=== PATIENT | male | born 1935 | race Caucasian/White ===

== ENCOUNTER → 2017-11-04 | Outpatient (CLI) | payer OTHER ==
[~2017-11-04] MED LIST: ADALAT CC30 MG PO; AUGMENTIN 500-1 EACH PO; AUGMENTIN 875875 MG PO; BENADRYL25 MG PO; BLOOD THINNER; CEFDINIR300 MG PO; DIFLUCAN200 MG PO; HYDROCHLOROTH12.5 M1 PO; HYDROCHLOROTH12.5 MG; HYDROCODONE-AP1 EAC6; LEVAQUIN 500 M500 M2 PO; LISINOPRIL20 MG PO; MUCINEX600 MG PO; PREDNISONE 10 M10 MG PO; PREDNISONE 20 M20 MG PO; TYLENOL325 MG PO; VENTOLIN HFA 1818 GM INH; ZYRTEC10 MG PO
--- NOTE | 2017-11-17 23:20 | ONC ---
[place] [address] RADIATION ONCOLOGY NOTE Name: AUGIEABBEY Maninder Room: [facility]#: [id number] Admission: 11/04/17 Attend Phys: Beni Hernandez MD Discharge: Date of : 39 Report #: [id number] THIS REPORT FOR: //name// CC: Beni Graf DATE OF PROCEDURE: 11/04/2017 [facility] REFERRING PHYSICIANS: Kurtis Gillette DO; Lyla Mendosa MD; Stephanie Baron MD; and Dr. Graf. PRIMARY SITE AND HISTOPATHOLOGY: The patient received Erbitux with radiation therapy for a stage ZULEYKA base of tongue cancer. Radiation treatments were completed on 07/13/2013. PROCEDURE PERFORMED: Nasopharyngolaryngoscopy. FINDINGS: On nasopharyngolaryngoscopy, after administration of a small amount of 2% viscous lidocaine orally and 2% viscous lidocaine to the left nostril; there were no visible lesions in the nasopharynx. There were no visible lesions in the posterior oropharynx. The base of tongue had no visible lesions. The true vocal cords were normally mobile bilaterally without any visible lesions. There was no evidence of head and neck cancer. Thank you for allowing me to participate in the care of this patient. <ELECTRONICALLY SIGNED> By: Beni Hernandez MD 11/17/17 2320 1002 1114Dtianna Hernandez MD /nt
--- NOTE | 2017-11-17 23:34 | ONC ---
[place] [address] RADIATION ONCOLOGY NOTE Name: ABBEY GHOSH Room: [facility]#: [id number] Admission: 11/04/17 Attend Phys: Beni Hernandez MD Discharge: Date of : 39 Report #: [id number] THIS REPORT FOR: //name// CC: Beni Baron MD DATE OF SERVICE: 11/04/2017 REFERRING PHYSICIANS: Dr. Kurtis Gillette, Lyla Mendosa MD and Stephanie Baron MD [facility] phone is [phone]. PRIMARY SITE AND HISTOPATHOLOGY: The patient received Erbitux with radiation therapy for a stage ZULEYKA base of tongue cancer. The radiation treatments were completed on 07/13/2013. INTERVAL NOTE: The patient is eating well. He was taking several stool softeners and his daughter had him decrease the amount of stool softeners he was taking. Lately, he has been a little bit weaker. He is edentulous. In the past, he has also had some skin cancers removed from the right ear, left chin and right upper lip. MEDICATIONS: Flonase, Procardia, lisinopril, hydrochlorothiazide. SOCIAL HISTORY: The patient is retired. He has 3 children. Cigarettes: he continues to smoke about 3-5 cigarettes a day. REVIEW OF SYSTEMS: RESPIRATORY: The patient's breathing was baseline. MUSCULOSKELETAL: Good range of motion of his upper extremities. PHYSICAL EXAMINATION: VITAL SIGNS: The patient weighed 128.6 pounds on 11/04/2017, he was 140.4 pounds on 09/01/2016. on 11/04/2017 blood pressure was 155/67, pulse was originally 128. I rechecked it after he got to stand for a while and it went down to 96. LYMPH NODES: He had no palpable cervical or supraclavicular lymphadenopathy. HEAD, EYES, EARS, NOSE AND THROAT: Mouth had no suspicious visible lesions or suspicious palpable lesions. On nasopharyngolaryngoscopy, after administration of a small amount of 2% viscous lidocaine orally and 2% viscous lidocaine to the left nostril with a cotton swab, there were no visible lesions in the nasopharynx. There were no visible lesions in the posterior oropharynx. True vocal cords were normally mobile bilaterally without any visible lesions. The base of tongue had no visible lesions. HEART: Had a regular rate and rhythm without murmur. LUNGS: [place] [address] RADIATION ONCOLOGY NOTE Name: ABBEY GHOSH Room: [facility]#: [id number] Admission: 11/04/17 Attend Phys: Beni Hernandez MD Discharge: Date of : 39 Report #: [id number] clear to auscultation. LABORATORY DATA: From 10/23/2017, white blood cell count was 12.58, hemoglobin 10.6, platelets 428,000. Sodium 131, potassium 4.5, BUN 19, creatinine 1.0. TSH was 3.01. ASSESSMENT AND PLAN: 1. History of head and neck cancer- There is no evidence of head and neck cancer. A requisition was given to the patient for a TSH, complete blood count, basic metabolic panel in about 8 months. He was asked to schedule a followup appointment to see me afterwards. 2. Cigarette/cigar smoking- The patient was encouraged to quit smoking. 3. 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 4. Possible upper respiratory infection. The patient has a cough at home. His white blood cell count is a little bit elevated, so he was prescribed azithromycin for a presumed upper respiratory infection. His daughter was told to contact his primary care physician if his strength does not come back or if his symptoms worsen. Thank you for allowing me to participate in the care of this patient. <ELECTRONICALLY SIGNED> By: Beni Hernandez MD 11/17/17 2334 1011 1033Dtianna Hernandez MD /nt
== END ==
LOC: M.RTH 11-02 14:00
DX: Z08 Encounter for follow-up examination after completed treatment for malignant neoplasm (principal); Z85.89 Personal history of malignant neoplasm of other organs and systems; F17.200 Nicotine dependence, unspecified, uncomplicated; C44.202 Unspecified malignant neoplasm of skin of right ear and external auricular canal; C44.309 Unspecified malignant neoplasm of skin of other parts of face; C00.0 Malignant neoplasm of external upper lip

== ENCOUNTER 2017-12-12 07:41 | Inpatient (IN) | payer OTHER ==
[~2017-12-12] VITALS: Ht 170.2 cm; Wt 61.7 kg
[~2017-12-12 07:41] MED LIST changes: -AUGMENTIN 500-1 EACH PO; -BLOOD THINNER; -CEFDINIR300 MG PO; -DIFLUCAN200 MG PO; -MUCINEX600 MG PO; -PREDNISONE 10 M10 MG PO; -TYLENOL325 MG PO; -VENTOLIN HFA 1818 GM INH
[2017-12-12 07:43] VITALS: BP 151/88
--- NOTE | 2017-12-12 07:51 | NUR ---
PT HARD OF HEARING AND UNABLE TO ANSWER SOME TRIAGE QUESTIONS.
[2017-12-12] MEDS ORDERED: BLOOD THINNER (08:11)
[2017-12-12 08:26] LABS: HEMATOCRIT 29.4 % (42.0-52.0); HEMOGLOBIN 10.3 gm/dL (14.0-18.0); MCH 31.5 pg (26.0-34.0); MCV 90.1 fL (80.0-100.0); MPV 6.8 fl. (7.2-11.1); NUCLEATED RBCS 0 /100WBC; PLATELET COUNT* 333 thou/uL (150-400); RBC 3.26 mil/uL (4.50-6.00); WBC 5.8 thou/uL (4.0-11.0)
[2017-12-12 08:36] LABS: APTT 31.5 Seconds (25.0-31.3); INR 1.2; PROTIME 11.2 Seconds (9.20-11.50)
[2017-12-12 08:41] LABS: BE 5.4 mmol/L (-2 to +3); HCO3 30.4 mmol/L (22.0-26.0); PCO2 46.4 mmHg (35.0-45.0); PO2 120.1 mmHg (75.0-100.0); pH 7.434 (7.340-7.450)
[2017-12-12 08:43] LABS: ANION GAP 6 mmol/L (7-16); BUN 15 mg/dL (7-18); CALCIUM 8.6 mg/dL (8.5-10.1); CHLORIDE 95 mmol/L (98-107); CO2 31 mmol/L (21-32); CREATININE 0.7 mg/dL (0.6-1.3); GLUCOSE 93 mg/dL (70-99); SODIUM 132 mmol/L (136-145)
[2017-12-12 08:54] LABS: ALBUMIN 2.9 g/dL (3.4-5.0); ALKALINE PHOSPHATASE 66 U/L (46-116); NT-PRO BRAIN NAT PEPTIDE 574 pg/mL (<300); SGOT 20 U/L (15-37); SGPT 23 U/L (30-65); TOTAL BILIRUBIN 0.3 mg/dL (<0.1-1.0); TOTAL PROTEIN 6.7 g/dL (6.4-8.2); TROPONIN-I LEVEL <0.06 ng/mL (<0.06)
[2017-12-12 09:06] LABS: ABSOLUTE EOSINOPHILS 0.1 thou/uL (0.0-0.7); ABSOLUTE LYMPHOCYTES 0.2 thou/uL (0.8-5.3); ABSOLUTE MONOCYTES 0.2 thou/uL (0.0-1.2); ABSOLUTE NEUTROPHILS 5.3 thou/uL (1.6-8.1); PLATELET ESTIMATE ADEQUATE
--- NOTE | 2017-12-12 09:09 | NUR ---
PT'S DAUGHTER, PANFILO, CALLED TO ASK ABOUT PT. PANFILO STATED SHE WILL BE COMING TO HOSPITAL IN APPROX 1 HOUR.
--- NOTE | 2017-12-12 10:51 | NUR ---
[facility] [place] WAS CONTACTED, THIS NURSE UPDATED THE PT'S CURRENT MEDICATION LIST ACCORDING TO THE MEDICATIONS GIVEN BY PHARMACY.
[2017-12-12 13:15] VITALS: BP 117/90
[2017-12-12 14:00] VITALS: BP 144/73
--- NOTE | 2017-12-12 15:31 | NUR ---
PATIENT CAME TO THE FLOOR FROM THE ER IN STABLE CONDITION. 2 LITERS OF OXYGEN THROUGH NASAL CANNULA WITH OXYGEN SATURATION OF 100%. NO COMPLAINTS OF ANY PAIN. DAUGHTER CALLED FOR HISTORY SINCE PATIENT IS VERY HARD OF HEARING. VITALS SIGNS ARE STABLE, ADMISSIOND ASSESSMENT AND EDUCATION DONE, CALL LIGHT IS IN REACH, BED ALARM IN ON. WILL CONTINUE TO MONITOR.
--- NOTE | 2017-12-12 17:26 | NUR ---
PATIENT HAS BEEN ALERT SINCE COMING TO THE FLOOR TODAY FROM THE ER. PATIENT IS VERY HARD OF HEARING, HAVING TO USE A PAPER TO COMMUNICATE WITH PATIENT. HE CAN TALK BUT HAS TO READ WORDS WRIITEN ON PAPER. KEEPS ASKING ABOUT FAMILY BRINGING UP DENTURES, CHOPPED DIET IS ORDERED. VITAL SIGNS STABLE ON ROOM AIR. CALL LIGHT IS IN REACH AND BED ALARM IS ON. WILL CONTINUT TO MONITOR.
[2017-12-12 19:45] VITALS: BP 123/72
[2017-12-13 00:42] VITALS: BP 131/79
[2017-12-13 03:28] VITALS: BP 122/81
--- NOTE | 2017-12-13 05:09 | NUR ---
PATIENT ALERT AND ORIENTED. VERY HARD OF HEARING. VITALS STABLE. ON 2L OF OXYGEN. DIFFICULT TO COMPREHEND SPEECH AT TIMES. PRODUCTIVE COUGH. IV PATENT, SALINE LOCKED. VOIDING PER URINAL. HOURLY ROUNDS. BED ALARM IN USE. NUSING WILL CONTINUE TO MONITOR.
[2017-12-13 05:33] LABS: CALCIUM 8.8 mg/dL (8.5-10.1); CREATININE 0.8 mg/dL (0.6-1.3); MAGNESIUM 1.7 mg/dL (1.8-2.4)
[2017-12-13 05:39] LABS: HEMATOCRIT 31.3 % (42.0-52.0); HEMOGLOBIN 10.9 gm/dL (14.0-18.0); MCH 31.1 pg (26.0-34.0); MCHC 34.8 g/dL (28.0-37.0); MCV 89.4 fL (80.0-100.0); MPV 7.2 fl. (7.2-11.1); RBC 3.5 mil/uL (4.50-6.00); RDW-CV 13.5 % (10.5-14.5); WBC 15.6 thou/uL (4.0-11.0)
[2017-12-13 08:15] VITALS: BP 123/72
--- NOTE | 2017-12-13 13:03 | EKG ---
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1935 Requested By: Agapito Hayward Order Number: [id number] MD: Thomas Valderrama Measurements Intervals [place] Rate: 82 P: 78 HI: 155 QRS: 104 QRSD: 134 T: 47 QT: 407 QTc: 476 Interpretive Statements Sinus rhythm Probable left atrial enlargement Right bundle branch block Anteroseptal infarct, age indeterminate Lateral leads are also involved Compared to ECG 12/18/2015 12:52:46 Myocardial infarct finding now present Sinus tachycardia no longer present Ventricular premature complex(es) no longer present Electronically Signed On 12-13-2017 13:03:03 CDT by Thomas Valderrama [email or web address] <ELECTRONICALLY SIGNED> By: Denise Valderrama MD, FACC 12/13/17 1303 3 3 Denise Valderrama MD, [facility] /EPI
[2017-12-13 15:30] VITALS: BP 122/71
--- NOTE | 2017-12-13 17:42 | NUR ---
PATIENT HAS BEEN ALERT AND PLEASANT TODAY. NO COMPLAINTS OF PAIN TODAY. VITAL SIGNS STABLE ON 2 LITERS OF OXYGEN THROUGH NASAL CANNULA. IV IN LEFT UPPER ARM WORKS WELL FOR ANTIBIOTICS AND STEROIDS. CALL LIGHT IS IN REACH, WILL CONTINUE TO MONITOR.
[2017-12-13 21:20] VITALS: BP 120/66
--- NOTE | 2017-12-14 05:27 | NUR ---
PT SLEPT MOST OF SHIFT. ASSESSMENT DOCUMENTED. MEDS GIVEN PER E-MAR. NO REPORTS OF PAIN OR NAUSEA. NEW IV STARTED IN RIGHT FOREARM. PT WORE O2 ALL NIGHT. MAGNESIUM REPLACED PER PROTOCOL. WILL CONTINUE WITH PLAN OF CARE.
[2017-12-14 08:20] VITALS: BP 123/68
[2017-12-14] MEDS ORDERED: PREDNISONE 10 M10 MG PO (10:40)
[2017-12-14] MEDS ORDERED: CEFDINIR300 MG PO (10:40)
[2017-12-14] MEDS ORDERED: MUCINEX600 MG PO (10:40)
--- NOTE | 2017-12-14 10:40 | NUR ---
CM SPOKE TO THE PATIENT TO DISCUSS HOME SITUATION, DISCHARGE PLANNING, AND TO INFORM OF THE ROLE OF CM. PATIENT [place] AND UNABLE TO ANSWERING QUESTIONS APPROPRIATELY. PATIENTS DTR AARON AT THE BEDSIDE AND ANSWERING QUESTIONS FOR THE PATIENT. PATIENT NORMALLY ALERT, ORIENTED, AND INDEPENDENT WITH ADL'S. PATIENT RESIDES AT HOME WITH DTR AARON, AND SHE PREPARES ALL MEALS. PATIENT DRIVES SHORT DISTANCES OCCATIIONALLY. PATIENT USES A NEBULIZER, AND 02 AT NIGHT PROVIDED BY [facility]. PATIENT HAS NO HX OF OR SNF, AND PLANS TO RETURN HOME AT D/C. CM WILL REMAIN AVAILABLE TO ASSIST AND FOLLOW NEEDED.
[2017-12-14 11:13] VITALS: BP 123/68
--- NOTE | 2017-12-14 11:30 | NUR ---
PATIENT HAS BEEN ALERT AND ORIENTED TODAY, PLEASANT. UP WITH ASSIST TODAY, VITAL SIGNS STABLE ON ROOM AIR TODAY. NO COMPLAINTS OF PAIN TODAY. DAUGHTER IS AT BEDSIDE TODAY. PATIENT IS BEING DISCHARGED TO HOME WITH DAUGHTER. FAMILY LEFT TO GO HOME WITH DAUGHTER VIA WHEELCHAIR.
[2017-12-14 11:44] VITALS: BP 123/68
== END 2017-12-14 11:30 | disposition home or self-care (01) | DRG 193 ==
LOC: M.ERS 07:41 → M.3W 10:09 → M.TBA-ER 10:09 → M.3W 13:27
PROVIDERS: Emergency Medicine; ADMIT Internal Medicine
DX: J15.4 Pneumonia due to other streptococci (principal); J96.21 Acute and chronic respiratory failure with hypoxia; J44.1 Chronic obstructive pulmonary disease with (acute) exacerbation; J44.0 Chronic obstructive pulmonary disease with (acute) lower respiratory infection; E44.0 Moderate protein-calorie malnutrition; H91.90 Unspecified hearing loss, unspecified ear; I10 Essential (primary) hypertension; F17.210 Nicotine dependence, cigarettes, uncomplicated; Z85.828 Personal history of other malignant neoplasm of skin; Z68.21 Body mass index [BMI] 21.0-21.9, adult; Z85.21 Personal history of malignant neoplasm of larynx; Z90.49 Acquired absence of other specified parts of digestive tract; Z79.899 Other long term (current) drug therapy

== ENCOUNTER 2018-03-02 07:23 | Emergency (ER) | payer OTHER ==
[~2018-03-02] VITALS: Ht 167.6 cm; Wt 54.5 kg
[~2018-03-02 07:23] MED LIST changes: +BLOOD THINNER; +CEFDINIR300 MG PO; +MUCINEX600 MG PO; +PREDNISONE 10 M10 MG PO
[2018-03-02 07:50] LABS: HEMATOCRIT 33.6 % (42.0-52.0); HEMOGLOBIN 11.6 gm/dL (14.0-18.0); MCH 31.6 pg (26.0-34.0); MCHC 34.5 g/dL (28.0-37.0); MCV 91.5 fL (80.0-100.0); MPV 6.5 fl. (7.2-11.1); NUCLEATED RBCS 0 /100WBC; PLATELET COUNT* 407 thou/uL (150-400); RBC 3.67 mil/uL (4.50-6.00); RDW-CV 13.1 % (10.5-14.5); WBC 7.1 thou/uL (4.0-11.0)
[2018-03-02 08:06] LABS: APTT 29.7 Seconds (25.0-31.3); INR 1.1; PROTIME 10.7 Seconds (9.20-11.50)
[2018-03-02 08:07] LABS: ANION GAP 5 mmol/L (7-16); BUN 19 mg/dL (7-18); CALCIUM 8.7 mg/dL (8.5-10.1); CHLORIDE 94 mmol/L (98-107); CO2 34 mmol/L (21-32); GLUCOSE 86 mg/dL (70-99); SODIUM 133 mmol/L (136-145)
[2018-03-02 08:19] LABS: ALBUMIN 3.6 g/dL (3.4-5.0); ALKALINE PHOSPHATASE 69 U/L (46-116); NT-PRO BRAIN NAT PEPTIDE 573 pg/mL (<300); SGOT 21 U/L (15-37); SGPT 19 U/L (30-65); TOTAL BILIRUBIN 0.5 mg/dL (<0.1-1.0); TOTAL PROTEIN 6.7 g/dL (6.4-8.2); TROPONIN-I LEVEL <0.06 ng/mL (<0.06)
[2018-03-02 08:34] LABS: ABSOLUTE EOSINOPHILS 0.1 thou/uL (0.0-0.7); ABSOLUTE LYMPHOCYTES 0.5 thou/uL (0.8-5.3); ABSOLUTE MONOCYTES 0.5 thou/uL (0.0-1.2); PLATELET ESTIMATE ADEQUATE
[2018-03-02 09:02] VITALS: BP 146/86
--- NOTE | 2018-03-02 14:07 | EKG ---
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1935 Requested By: Jeremy Barajas Order Number: [id number] MD: Jefe Jreome Measurements Intervals [place] Rate: 89 P: 84 DC: 156 QRS: 134 QRSD: 132 T: 42 QT: 390 QTc: 475 Interpretive Statements Sinus rhythm Atrial premature complexes IVCD, consider atypical RBBB Anteroseptal infarct, age indeterminate possible Lateral leads are also involved Compared to ECG 12/12/2017 08:14:48 Atrial premature complex(es) now present Myocardial infarct finding still present Electronically Signed On 03-02-2018 14:07:23 CDT by Jefe Jerome [email or web address] <ELECTRONICALLY SIGNED> By: Jefe Jerome MD, [facility] 03/02/18 1407 0753 0753 Jefe Jerome MD, [facility] /EPI
== END 2018-03-02 09:03 | disposition home or self-care (01) ==
LOC: M.ERS 07:23
PROVIDERS: Family Medicine
DX: R51 Headache (principal); I10 Essential (primary) hypertension; J44.9 Chronic obstructive pulmonary disease, unspecified; Z85.828 Personal history of other malignant neoplasm of skin; Z90.49 Acquired absence of other specified parts of digestive tract

== ENCOUNTER 2018-05-18 12:38 | Inpatient (IN) | payer OTHER ==
[~2018-05-18] VITALS: Ht 165.1 cm; Wt 54.0 kg
--- NOTE | ~2018-05-18 | PROC ---
[facility] [address] [place] [address] PROCEDURE REPORT Name: ABBEY GHOSH Room: [address] IN .R.#: [id number] Admission: 05/18/18 Attend Phys: Stuart Haney Discharge: 05/25/18 Date of : 37 Report #: [id number] THIS REPORT FOR: //name// For GI report, please see the Provation report in [employer] content. By: 1547Medical Records Staff BRANDON /JOSEPH
[2018-05-18 12:44] VITALS: BP 137/76
[2018-05-18 13:00] LABS: HEMATOCRIT 30.8 % (42.0-52.0); HEMOGLOBIN 10.5 gm/dL (14.0-18.0); MCH 31.6 pg (26.0-34.0); MCHC 34.2 g/dL (28.0-37.0); MCV 92.5 fL (80.0-100.0); MPV 6.5 fl. (7.2-11.1); NUCLEATED RBCS 0 /100WBC; PLATELET COUNT* 337 thou/uL (150-400); RBC 3.32 mil/uL (4.50-6.00); RDW-CV 12.9 % (10.5-14.5); WBC 19.7 thou/uL (4.0-11.0)
[2018-05-18 13:06] LABS: ANION GAP 2 mmol/L (7-16); BUN 29 mg/dL (7-18); CALCIUM 8.4 mg/dL (8.5-10.1); CHLORIDE 92 mmol/L (98-107); CO2 35 mmol/L (21-32); CREATININE 1.2 mg/dL (0.6-1.3); GLUCOSE 141 mg/dL (70-99); POTASSIUM 3.4 mmol/L (3.5-5.1); SODIUM 129 mmol/L (136-145)
[2018-05-18 13:09] LABS: APTT 28.5 Seconds (25.0-31.3); INR 1.2; PROTIME 11.3 Seconds (9.20-11.50)
[2018-05-18 13:23] LABS: ABSOLUTE MONOCYTES 0.2 thou/uL (0.0-1.2); ABSOLUTE NEUTROPHILS 19.5 thou/uL (1.6-8.1); ANISOCYTOSIS 1+; PLATELET ESTIMATE ADEQUATE; POIKILOCYTOSIS 1+
[2018-05-18 13:26] LABS: ALBUMIN 3.1 g/dL (3.4-5.0); ALKALINE PHOSPHATASE 72 U/L (46-116); CK-MB MASS 3.2 ng/mL (<0.5-3.6); NT-PRO BRAIN NAT PEPTIDE 1381 pg/mL (<300); SGOT 24 U/L (15-37); SGPT 22 U/L (30-65); TOTAL BILIRUBIN 0.4 mg/dL (<0.1-1.0); TOTAL PROTEIN 6.2 g/dL (6.4-8.2); TROPONIN-I LEVEL <0.06 ng/mL (<0.06)
[2018-05-18] MEDS ORDERED: VENTOLIN HFA 1818 GM INH (13:27)
--- NOTE | 2018-05-18 14:41 | EKG ---
[place] [address] ELECTROCARDIOGRAM REPORT Name: ABBEY GHOSH Room: [place] [address] ADM IN 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 : 1935 Requested By: Hany Ulrich Order Number: [id number] MD: Gino Medley Measurements Intervals [place] Rate: 105 P: 83 ID: 155 QRS: 98 QRSD: 133 T: 22 QT: 371 QTc: 491 Interpretive Statements Sinus tachycardia with irregular rate Right bundle branch block Anteroseptal infarct, age indeterminate Lateral leads are also involved Compared to ECG 03/02/2018 07:53:14 Sinus rhythm no longer present Atrial premature complex(es) no longer present Myocardial infarct finding still present Electronically Signed On 05-18-2018 14:41:10 CDT by Gino Medley [email or web address] <ELECTRONICALLY SIGNED> By: Gino Medley MD, [facility] 05/18/18 1441 1350 1350 Gino Medley MD, [facility] /EPI
[2018-05-18 15:20] VITALS: BP 141/78
[2018-05-18 15:50] VITALS: BP 135/85
[2018-05-18 20:00] VITALS: BP 133/68
[2018-05-19] VITALS: BP 140/85
[2018-05-19 03:58] VITALS: BP 125/70
[2018-05-19 07:58] VITALS: BP 137/82
[2018-05-19 11:13] LABS: ABSOLUTE LYMPHOCYTES 0.2 thou/uL (0.8-5.3); ABSOLUTE MONOCYTES 0.3 thou/uL (0.0-1.2); ABSOLUTE NEUTROPHILS 9.4 thou/uL (1.6-8.1); BASOPHILS 0.1 %; EOSINOPHILS 0.3 %; HEMATOCRIT 29.7 % (42.0-52.0); HEMOGLOBIN 10.1 gm/dL (14.0-18.0); LYMPHOCYTES 2.2 %; MCH 31.8 pg (26.0-34.0); MCHC 34.2 g/dL (28.0-37.0); MCV 93.1 fL (80.0-100.0); MONOCYTES 3.5 %; MPV 6.9 fl. (7.2-11.1); NUCLEATED RBCS 0 /100WBC; PLATELET COUNT* 321 thou/uL (150-400); POLYS 93.9 %; RBC 3.19 mil/uL (4.50-6.00); RDW-CV 13.1 % (10.5-14.5)
[2018-05-19 11:24] VITALS: BP 138/85
[2018-05-19 11:26] LABS: CALCIUM 7.7 mg/dL (8.5-10.1); CREATININE 0.9 mg/dL (0.6-1.3); MAGNESIUM 1.5 mg/dL (1.8-2.4); POTASSIUM 3.2 mmol/L (3.5-5.1)
--- NOTE | 2018-05-19 14:34 | 2DMMODE ---
[place] [address] 2 D/M-MODE ECHOCARDIOGRAM Name: ABBEY GHOSH Room: [address] IN [facility]#: [id number] Admission: 05/18/18 Attend Phys: Angel Rincon Discharge: Date of : 39 Date of Service: 05/19/18 1434 Report #: [id number] THIS REPORT FOR: //name// APPROVED REPORT Study performed: 05/19/2018 10:54:10 EXAM: Comprehensive 2D, Doppler, and color-flow Echocardiogram Patient Location: In-Patient Room #: [facility] Status: routine BSA: 1.57 BP: 137/82 mmHg Rhythm: NSR Other Information Study Quality: Good Indications Dyspnea 2D Dimensions LVEF(%): 83.22 (>50%) IVSd: 7.25 (7-11mm) LVOT Diam: 19.78 (18-24mm) LVDd: 47.26 mm PWd: 8.14 (7-11mm) LVDs: 22.63 (25-40mm) Aortic Root: 33.53 mm Rao's LVEF: 83.22 % Volumes Left Atrial Volume (Systole) LA ESV Index: 26.70 mL/m2 Aortic Valve AoV Peak Rickey.: 1.23 m/s AO Peak Gr.: 6.06 mmHg LVOT Max P.78 mmHg AO Mean Gr.: 3.11 mmHg LVOT Mean P.12 mmHg LVOT Max V: 0.97 m/s AO V2 VTI: 23.34 cm LVOT Mean V: 0.69 m/s ALISHA (VTI): 2.59 cm2 LVOT V1 VTI: 19.70 cm Mitral Valve E/A Ratio: 1.28 [place] [address] 2 D/M-MODE ECHOCARDIOGRAM Name: ABBEY GHOSH Room: [address] IN .R.#: [id number] Admission: 05/18/18 Attend Phys: Angel Rincon Discharge: Date of : 39 Date of Service: 05/19/18 1434 Report #: [id number] MV Decel. Time: 187.65 ms MV E Max Rickey.: 0.72 m/s MV PHT: 54.42 ms MVA (PHT): 4.04 cm2 TDI E/Lateral E': 6.55 E/Medial E': 8.00 Medial E' Rickey.: 0.09 m/s Lateral E' Rickey.: 0.11 m/s Pulmonary Valve PV Peak Rickey.: 1.00 m/s PV Peak Gr.: 4.02 mmHg Tricuspid Valve RAP Estimate: 5.00 mmHg TR Peak Gr.: 33.85 mmHg RVSP: 38.85 mmHg PA Pressure: 38.85 mmHg Left Ventricle The left ventricle is normal size. There is normal LV segmental wall motion. There is normal left ventricular wall thickness. Left ventricular systolic function is normal. The left ventricular ejection fraction is within the normal range. LVEF is 60%. Grade I - abnormal relaxation pattern. Right Ventricle The right ventricle is normal size. The right ventricular systolic function is normal. Atria The left atrium size is normal. Right atrium is dilated. Aortic Valve Mild aortic valve sclerosis. Mild aortic regurgitation. There is no aortic valvular stenosis. Mitral Valve The mitral valve is normal in structure. Mild mitral regurgitation. No evidence of mitral valve stenosis. Tricuspid Valve The tricuspid valve is normal in structure. Mild tricuspid regurgitation. Mild pulmonary hypertension. Pulmonic Valve The pulmonary valve is normal in structure. [place] [address] 2 D/M-MODE ECHOCARDIOGRAM Name: ABBEY GHOSH Room: [address]#: [id number] Admission: 05/18/18 Attend Phys: Angel Rincon Discharge: Date of : 39 Date of Service: 05/19/18 1434 Report #: [id number] valvular regurgitation. Great Vessels The aortic root is normal in size. IVC is normal in size and collapses with >50% inspiration Pericardium There is no pericardial effusion. <Conclusion> The left ventricle is normal size. There is normal left ventricular wall thickness. Left ventricular systolic function is normal. The left ventricular ejection fraction is within the normal range. LVEF is 60%. Grade I - abnormal relaxation pattern. The right ventricle is normal size. The left atrium size is normal. Right atrium is dilated. Mild aortic valve sclerosis. Mild aortic regurgitation. There is no aortic valvular stenosis. The mitral valve is normal in structure. Mild mitral regurgitation. The tricuspid valve is normal in structure. Mild tricuspid regurgitation. Mild pulmonary hypertension. IVC is normal in size and collapses with >50% inspiration There is no pericardial effusion. There is normal LV segmental wall motion. <ELECTRONICALLY SIGNED> By: Jefe Jerome MD, FACC 05/19/18 1434 1434 1434 Jefe Jerome MD, FACC /INF
[2018-05-19 16:03] VITALS: BP 133/76
[2018-05-19 20:00] VITALS: BP 128/68
[2018-05-20] VITALS: BP 139/80
[2018-05-20 04:00] VITALS: BP 178/89
[2018-05-20 05:34] LABS: HEMATOCRIT 28.8 % (42.0-52.0); MCH 32.2 pg (26.0-34.0); MCHC 34.6 g/dL (28.0-37.0); MCV 93.1 fL (80.0-100.0); MPV 6.7 fl. (7.2-11.1); RBC 3.09 mil/uL (4.50-6.00); RDW-CV 13.3 % (10.5-14.5); WBC 7.6 thou/uL (4.0-11.0)
[2018-05-20 05:49] LABS: CALCIUM 7.9 mg/dL (8.5-10.1); CREATININE 0.9 mg/dL (0.6-1.3); MAGNESIUM 1.6 mg/dL (1.8-2.4)
[2018-05-20 08:00] VITALS: BP 142/79
[2018-05-20 11:39] VITALS: BP 97/63
[2018-05-20 15:58] VITALS: BP 99/47
[2018-05-20 20:00] VITALS: BP 97/54
[2018-05-21] VITALS: BP 105/56
[2018-05-21 04:00] VITALS: BP 122/73
[2018-05-21 08:32] LABS: ABSOLUTE LYMPHOCYTES 0.4 thou/uL (0.8-5.3); ABSOLUTE MONOCYTES 0.6 thou/uL (0.0-1.2); ABSOLUTE NEUTROPHILS 11.6 thou/uL (1.6-8.1); BASOPHILS 0.1 %; EOSINOPHILS 0.2 %; HEMATOCRIT 27.4 % (42.0-52.0); HEMOGLOBIN 9.3 gm/dL (14.0-18.0); MCH 31.5 pg (26.0-34.0); MCHC 33.8 g/dL (28.0-37.0); MCV 93.3 fL (80.0-100.0); MONOCYTES 4.4 %; MPV 6.7 fl. (7.2-11.1); NUCLEATED RBCS 0 /100WBC; PLATELET COUNT* 298 thou/uL (150-400); POLYS 92.3 %; RBC 2.94 mil/uL (4.50-6.00); WBC 12.6 thou/uL (4.0-11.0)
[2018-05-21 08:40] LABS: INR 1.2; PROTIME 11.4 Seconds (9.20-11.50)
[2018-05-21 08:45] VITALS: BP 136/72
[2018-05-21 08:49] LABS: ALBUMIN 2.5 g/dL (3.4-5.0); ALKALINE PHOSPHATASE 49 U/L (46-116); ANION GAP < 0 mmol/L (7-16); BUN 17 mg/dL (7-18); CALCIUM 7.9 mg/dL (8.5-10.1); CHLORIDE 97 mmol/L (98-107); CO2 37 mmol/L (21-32); CREATININE 0.8 mg/dL (0.6-1.3); GLUCOSE 87 mg/dL (70-99); POTASSIUM 3.6 mmol/L (3.5-5.1); SGOT 23 U/L (15-37); SGPT 19 U/L (30-65); SODIUM 133 mmol/L (136-145); TOTAL BILIRUBIN 0.4 mg/dL (<0.1-1.0); TOTAL PROTEIN 5.4 g/dL (6.4-8.2)
[2018-05-21 12:07] VITALS: BP 142/88
[2018-05-21 14:04] VITALS: BP 118/90
[2018-05-21 20:00] VITALS: BP 129/71
[2018-05-22] VITALS: BP 132/66
[2018-05-22 04:00] VITALS: BP 152/78
[2018-05-22 04:45] LABS: HEMATOCRIT 26.7 % (42.0-52.0); HEMOGLOBIN 9.5 gm/dL (14.0-18.0); MCH 32.9 pg (26.0-34.0); MCHC 35.6 g/dL (28.0-37.0); MCV 92.4 fL (80.0-100.0); MPV 7.6 fl. (7.2-11.1); RBC 2.89 mil/uL (4.50-6.00); WBC 8.6 thou/uL (4.0-11.0)
[2018-05-22 05:40] LABS: ALBUMIN 2.5 g/dL (3.4-5.0); CALCIUM 7.8 mg/dL (8.5-10.1); CREATININE 0.7 mg/dL (0.6-1.3); TOTAL BILIRUBIN 0.4 mg/dL (<0.1-1.0)
[2018-05-22 08:00] VITALS: BP 142/79
[2018-05-22 12:00] VITALS: BP 84/45
--- NOTE | 2018-05-22 12:42 | CON ---
[address] [address] CONSULTATION Name: ABBEY GHOSH Room: [address] IN M.R.#: [id number] Admission: 05/18/18 Attend Phys: Stuart Haney Discharge: Date of : 39 Report #: [id number] THIS REPORT FOR: //name// CC: Kurtis Rincon DATE OF SERVICE: 05/19/2018 REQUESTED BY: Dr. Pedraza. INDICATION FOR CONSULTATION: Lung nodules/mass. HISTORY OF PRESENT ILLNESS: This is an 82-year-old gentleman with a past medical history as mentioned below. This does include a history of tongue cancer. The patient has previously had a treatment for this. The patient was evaluated by Radiation Oncology earlier this year and was not noted to have any recurrence. The patient is also reported to be an active smoker and on continuous oxygen at home for COPD. The patient at this time is fully awake and is sitting and eating lunch; however, he is able to provide only a fairly limited history. He is hard of hearing. I am not completely certain if he is understanding all my questions correctly. Regardless, he is here for a history of recent dizziness as well as frequent falls at home including once he landed on his left knee. He is noted to have a cough as well. The patient is unable to describe as to whether his cough has worsened recently. He has had some shortness of breath as well. The patient is unable to describe as to whether there is a significant increase in his shortness of breath recently. He has been evaluated by the speech therapy service. He currently is on thickened liquids, honey thick and he is video swallow pending. He does not describe any upper respiratory complaints. He also does not have a fever. There is significant swelling of the left lower extremity. This is unilateral. The patient answered to the negative for 12 questions for review of systems except as mentioned above; however, it appears to me that he may not have been able to understand all questions asked. PAST MEDICAL HISTORY: Tongue cancer. Per scope performed by Radiation Oncology earlier this year, there was no recurrence. COPD on long-term oxygen therapy. I do not have details available. He has previously had a mass removed from his neck, appendectomy, hypertension, rheumatic fever at the age of 15, ruptured appendix and mesh placement in the abdomen, broken leg as a child and skin cancer. The patient's last available echocardiogram is from 2005 and shows left ventricular ejection fraction of 60-65% without elevation in right heart pressures. SOCIAL HISTORY: He is an active smoker. He has been smoking for several decades, unable to quantify exactly at this time. [place] [address] CONSULTATION Name: ABBEY GHOSH Room: [address] IN .R.#: [id number] Admission: 05/18/18 Attend Phys: Stuart Haney Discharge: Date of : 39 Report #: [id number] alcohol use or illegal drug use. CURRENT MEDICATIONS: List is in [employer], reviewed. ALLERGIES: No known drug allergies. FAMILY HISTORY: The patient did not describe any pertinent family history. PHYSICAL EXAMINATION: GENERAL: He is fully awake; however, he is able to communicate only to a limited extent and is hard of hearing. VITAL SIGNS: He has a pulse of 85 and a blood pressure of 138/85. He is saturating 92%. He is on 3 liters nasal cannula. His respiratory rate is 18. He has a temperature of 37.1. HEENT: Head is normocephalic and atraumatic. Pupils are equal. He had food in his mouth. He was unable to follow instructions to discontinue eating and clear his throat, so that I can examine his throat. NECK: Does not show raised JVP, asymmetry, mass or lymph nodes. CHEST: Symmetrical expansion on inspection and palpation. On auscultation, I do not hear any added sounds. HEART: Regular. There is no murmur. ABDOMEN: Soft and nontender. EXTREMITIES: Lower extremities show 3+ edema on the left side. There is no edema on the right side. There is no calf tenderness. SKIN: Dry and intact. NEUROLOGICAL: Moves all extremities bilaterally equally and spontaneously with no focal deficit identified. LABORATORY DATA: The patient's CT chest is consistent with pneumonia, suspect aspiration pneumonia. There are subcentimeter lung nodules noted as well. There is a mass-like lesion at the right lung base, which likely is an infiltrate, malignancy; however, is not completely ruled out. Emphysema is also noted in the CT. The patient's lab work, which does show electrolyte abnormalities is in [employer] and this is reviewed. Anemia also noted. The patient's CBC and chemistries as well as coagulation studies are reviewed. ASSESSMENT AND PLAN: 1. Pulmonary infiltrates/lung mass/lung nodules. The patient's CT chest is consistent with pneumonia. I suspect that he likely aspirates chronically which is the reason for the infiltrates seen on the CT. While I cannot completely rule out the possibility of a malignancy at the right lung base, it appears more likely to me that the mass-like opacity is secondary to pneumonia. At this time, I will recommend continuing with broad spectrum antibiotics considering that he appears to have been aspirating. I broadened his antibiotic coverage to add Zosyn to cover for aspiration. We will continue with Zithromax. [address] [address] CONSULTATION Name: ABBEY GHOSH Room: [address] IN M.R.#: [id number] Admission: 05/18/18 Attend Phys: Stuart Haney Discharge: Date of : 39 Report #: [id number] The patient has other subcentimeter lung nodules as well. He will need followup CT scans. I will follow along and then provide further recommendations. More cultures and serologies are also ordered. 2. Chronic obstructive pulmonary disease on long-term oxygen. It appears to me that he has had increase in shortness of breath recently; however, he is not able to fully describe this. I will therefore put him on scheduled nebulized bronchodilators overnight and also give him corticosteroids. We will reassess tomorrow regarding whether further steroid therapy is indicated. 3. Dizziness/frequent falls likely due to his respiratory status as mentioned above. Certainly suggest evaluation for other possible etiologies as well. The patient is a high fall risk for which he will need evaluation prior to his discharge. 4. Unilateral lower extremity edema. Need to rule out DVT. Venous Dopplers are ordered. 5. Past medical history of tongue cancer. Per last Radiation Oncology report, there was no recurrence earlier this year. 6. Hyponatremia. Note the sodium was initially decreased to 129. As discussed above, possibility of malignancy does need to be considered, although infiltrates appear to be more obvious. I would favor stabilizing the patient first. We will plan on doing a followup CT towards the end of this admission. If indicated then the patient's right lung mass can be approached using a CT-guided lung biopsy; however, this will be high risk considering his history of significant COPD. 7. Electrolyte abnormalities. These are already being addressed. During evaluation of cardiac function, we will also do an echo. Thanks for this consultation. <ELECTRONICALLY SIGNED> By: Patrick Vieira MD 05/22/18 1242 1319 0553Patrick Vieira MD /nt
[2018-05-22 16:14] VITALS: BP 85/54
[2018-05-22 19:40] VITALS: BP 109/56
[2018-05-23] VITALS: BP 124/64
[2018-05-23 04:00] VITALS: BP 143/71
[2018-05-23 07:45] VITALS: BP 144/79
[2018-05-23 12:00] VITALS: BP 134/84
[2018-05-23 16:00] VITALS: BP 135/78
[2018-05-23 19:30] VITALS: BP 133/73
[2018-05-24] VITALS: BP 131/73
[2018-05-24 04:00] VITALS: BP 139/77
[2018-05-24 04:54] LABS: HEMATOCRIT 25.1 % (42.0-52.0); HEMOGLOBIN 8.6 gm/dL (14.0-18.0); MCH 31.7 pg (26.0-34.0); MCHC 34.3 g/dL (28.0-37.0); MCV 92.3 fL (80.0-100.0); MPV 7.1 fl. (7.2-11.1); RBC 2.72 mil/uL (4.50-6.00); RDW-CV 12.9 % (10.5-14.5); WBC 7.4 thou/uL (4.0-11.0)
[2018-05-24 05:04] LABS: ALBUMIN 2.2 g/dL (3.4-5.0); CALCIUM 7.5 mg/dL (8.5-10.1); CREATININE 0.9 mg/dL (0.6-1.3); MAGNESIUM 1.6 mg/dL (1.8-2.4); POTASSIUM 3.9 mmol/L (3.5-5.1); TOTAL BILIRUBIN 0.3 mg/dL (<0.1-1.0); TOTAL PROTEIN 4.7 g/dL (6.4-8.2)
[2018-05-24 08:00] VITALS: BP 111/78
[2018-05-24 12:05] VITALS: BP 131/69
[2018-05-24 16:12] VITALS: BP 129/68
[2018-05-24 20:00] VITALS: BP 136/77
[2018-05-25] VITALS (9 sets, daily range): BP systolic 131–153; BP diastolic 71–90
[2018-05-25] MEDS ORDERED: AUGMENTIN 500-1 EACH PO (14:31)
[2018-05-25] MEDS ORDERED: DIFLUCAN200 MG PO (14:33)
[2018-05-25] MEDS ORDERED: TYLENOL325 MG PO (14:37)
--- NOTE | 2018-05-29 10:30 | CON ---
[facility] [address] [place] [address] CONSULTATION Name: ABBEY GHOSH Room: [address] IN M.R.#: [id number] Admission: 05/18/18 Attend Phys: Stuart Haney Discharge: 05/25/18 Date of : 39 Report #: [id number] THIS REPORT FOR: //name// CC: Patrick Reid DO DATE OF SERVICE: 05/20/2018 ADDENDUM REFERRING PHYSICIAN: Angel Rincon DO REASON FOR CONSULTATION: Dysphagia. IMPRESSION: 1. Oropharyngeal and possibly esophageal dysphagia -- problems related to the same. 2. Suspected chronic aspiration pneumonia per pulmonary. 3. History of head and neck cancer for which the patient underwent surgery followed by radiation therapy with subsequent development of proximal esophageal stricture -- last EGD with dilation was performed in April 2014. 4. 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 RECOMMENDATIONS: 1. I tried to convince the patient needs an EGD at the very least to evaluate his upper GI tract to see if there is anything that is causing him to aspirate such as proximal esophageal stricture, but he wanted no part of it. Since he appears to understand what I am saying (I think), I do not feel comfortable forcing him to do without his consent. 2. We will discuss the patient's case with Dr. Rincon and make further recommendations thereafter. ADDENDUM: After I left the patient and he knew that he cannot have anything to eat or drink until he had an upper endoscopy, he was finally agreeable to the same. We will proceed with an upper endoscopy tomorrow and whether or not he will consent to having a PEG placed is not obtained. I will discuss this with him prior to the procedure and we will proceed with upper endoscopy and possible gastrostomy tube placement later today. HISTORY OF PRESENT ILLNESS: The patient is an 82-year-old white male, survivor of head and neck cancer, specifically tongue cancer for which he underwent surgery followed by radiation treatment. He has had problems with dysphagia. 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 He denies any complaints, does not think he has a problem; however, the patient is in the hospital now with pneumonia and it was thought by pulmonary that he may have problem with aspiration. For this reason, he was seen in consultation by speech pathology who had him undergo a bedside evaluation of his swallow and then eventually a formal video swallow study, which revealed evidence to suggest there may be some proximal esophageal stricture. The patient does have some problems with oropharyngeal dysphagia, and they recommended he undergo an upper endoscopy. In talking with the patient by writing notes, he did not want to have anything to do with doing an upper endoscopy. He did not think he has any problems related to the same. However, when he was told that he would not be able to eat or drink, he was agreeable to proceed with upper endoscopy. The patient is extremely hard of hearing and also has unintelligible language and it was difficult to talk with him regarding the same. ALLERGIES: None. MEDICATIONS: At home are listed in the [employer]. PAST MEDICAL AND SURGICAL HISTORY: Significant for head and neck cancer with previous tongue cancer as mentioned above. He has COPD, on long-term oxygen. He has had previous appendectomy. He has underlying hypertension. He has had a ruptured appendix and mesh placement. SOCIAL HISTORY: The patient is an active smoker and continues to smoke. Alcohol use is not known. PHYSICAL EXAMINATION: GENERAL: Revealed an ill-appearing 82-year-old gentleman who has intelligible language. CARDIOPULMONARY: Revealed a regular rate and rhythm. LUNGS: Coarse. ABDOMEN: Soft and nontender. No rebound or guarding noted. LABORATORY DATA: From 05/20/2018 revealed a white count of 7.6, hemoglobin 10.0, platelet count 329,000. His sodium is 133, potassium 4.0, chloride 96, bicarbonate 34, BUN 19, creatinine 0.9. His GFR is 81. Bilirubin 0.4, alkaline phosphatase 72, AST is 24, ALT 22. Albumin is 3.1. 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 There is spiculated 9 mm nodule laterally in the right upper lobe as well as a 2.2 cm mass-like density in the right lung base posteriorly, which is new since the examination in November 2015. This may represent a focal infiltrate or lung mass. There is also some scattered endobronchial mucus plugging. Does have some lymph nodes, but it is unclear whether these are prominent or not. Postsurgical change from previous [facility] [address] [place] [address] CONSULTATION Name: ABBEY GHOSH Room: [address] IN [facility]#: [id number] Admission: 05/18/18 Attend Phys: Stuart Haney Discharge: 05/25/18 Date of : 37 Report #: [id number] cholecystectomy was noted. There also appeared to be some possible thickening of the stomach, likely artifact secondary to nondistention. DISCUSSION: At the present time, the patient is finally agreeable to undergo endoscopic evaluation. We will proceed with upper endoscopy tomorrow and make further recommendations thereafter. I discussed the possibility of placing a PEG tube. The patient was not particularly interested to the same, so we will proceed with upper endoscopy only. <ELECTRONICALLY SIGNED> By: Chon Berry DO 05/29/18 1030 1431 1923Gjoceline Berry DO /nt
== END 2018-05-25 17:15 | disposition home health service (06) | DRG 871 ==
LOC: M.ERS 12:38 → M.TBA-ER 14:27 → M.2W 14:27
PROVIDERS: Internal Medicine; Internal Medicine Gastroenterology; Nurse Practitioner Psychiatric/Mental Health; ADMIT Internal Medicine
PROC: 0DJ08ZZ Inspection of Upper Intestinal Tract, Via Natural or Artificial Opening Endoscopic (ICD-10-PCS; principal; 2018-05-21)
DX: A41.9 Sepsis, unspecified organism (principal); J69.0 Pneumonitis due to inhalation of food and vomit; E87.1 Hypo-osmolality and hyponatremia; J96.11 Chronic respiratory failure with hypoxia; E44.0 Moderate protein-calorie malnutrition; Z68.1 Body mass index [BMI] 19.9 or less, adult; R47.01 Aphasia; Z60.2 Problems related to living alone; I10 Essential (primary) hypertension; J44.9 Chronic obstructive pulmonary disease, unspecified; R91.8 Other nonspecific abnormal finding of lung field; E87.6 Hypokalemia; W18.39XA Other fall on same level, initial encounter; F17.210 Nicotine dependence, cigarettes, uncomplicated; R91.1 Solitary pulmonary nodule; S80.02XA Contusion of left knee, initial encounter; K44.9 Diaphragmatic hernia without obstruction or gangrene; R13.14 Dysphagia, pharyngoesophageal phase; D64.9 Anemia, unspecified; R13.12 Dysphagia, oropharyngeal phase; Z90.49 Acquired absence of other specified parts of digestive tract; Z85.818 Personal history of malignant neoplasm of other sites of lip, oral cavity, and pharynx; Z99.81 Dependence on supplemental oxygen; Z79.899 Other long term (current) drug therapy; Y93.89 Activity, other specified; Y92.89 Other specified places as the place of occurrence of the external cause; Y99.8 Other external cause status

== ENCOUNTER 2018-05-30 21:40 | Inpatient (IN) | payer OTHER ==
[~2018-05-30] VITALS: Ht 182.9 cm; Wt 70.5 kg
[~2018-05-30 21:40] MED LIST changes: +AUGMENTIN 500-1 EACH PO; +DIFLUCAN200 MG PO; +TYLENOL325 MG PO; +VENTOLIN HFA 1818 GM INH
[2018-05-30 21:42] VITALS: BP 87/42
[2018-05-30 21:58] LABS: HCO3 25.1 mmol/L (22.0-26.0)
[2018-05-30 21:59] LABS: PCO2 71.8 mmHg (35.0-45.0); PO2 349.8 mmHg (75.0-100.0); pH 7.162 (7.340-7.450)
[2018-05-30 21:59] LABS: HEMATOCRIT 24.7 % (42.0-52.0); HEMOGLOBIN 8.4 gm/dL (14.0-18.0); MCH 32.3 pg (26.0-34.0); MCHC 34.1 g/dL (28.0-37.0); MCV 94.7 fL (80.0-100.0); MPV 7.4 fl. (7.2-11.1); NUCLEATED RBCS 0 /100WBC; PLATELET COUNT* 243 thou/uL (150-400); RBC 2.61 mil/uL (4.50-6.00); WBC 10.3 thou/uL (4.0-11.0)
[2018-05-30 22:12] LABS: ANION GAP 6 mmol/L (7-16); BUN 54 mg/dL (7-18); CALCIUM 7.8 mg/dL (8.5-10.1); CHLORIDE 100 mmol/L (98-107); CO2 28 mmol/L (21-32); CREATININE 2.3 mg/dL (0.6-1.3); GLUCOSE 197 mg/dL (70-99); POTASSIUM 4.2 mmol/L (3.5-5.1); SODIUM 134 mmol/L (136-145)
[2018-05-30 22:14] LABS: ABSOLUTE LYMPHOCYTES 0.3 thou/uL (0.8-5.3); PLATELET ESTIMATE ADEQUATE
[2018-05-30 22:18] LABS: APTT 40.2 Seconds (25.0-31.3); INR 1.3
[2018-05-30 22:24] LABS: ALKALINE PHOSPHATASE 53 U/L (46-116); NT-PRO BRAIN NAT PEPTIDE 5170 pg/mL (<300); SGOT 30 U/L (15-37); SGPT 28 U/L (30-65); TOTAL BILIRUBIN 0.4 mg/dL (<0.1-1.0); TOTAL PROTEIN 4.9 g/dL (6.4-8.2); TROPONIN-I LEVEL <0.06 ng/mL (<0.06)
[2018-05-30 23:47] VITALS: BP 74/42
[2018-05-31] VITALS (58 sets, daily range): BP systolic 63–140; BP diastolic 37–70
[2018-05-31 06:40] LABS: HEMATOCRIT 27.2 % (42.0-52.0); HEMOGLOBIN 9.3 gm/dL (14.0-18.0); MCH 32.4 pg (26.0-34.0); MCHC 34.2 g/dL (28.0-37.0); MCV 94.6 fL (80.0-100.0); MPV 7.8 fl. (7.2-11.1); RBC 2.88 mil/uL (4.50-6.00); RDW-CV 13.2 % (10.5-14.5); WBC 3.5 thou/uL (4.0-11.0)
[2018-05-31 06:47] LABS: CALCIUM 7.4 mg/dL (8.5-10.1); CREATININE 2.3 mg/dL (0.6-1.3); POTASSIUM 4.8 mmol/L (3.5-5.1)
[2018-05-31 08:47] LABS: BE -6.2 mmol/L (-2 to +3); HCO3 23.3 mmol/L (22.0-26.0)
[2018-05-31 08:49] LABS: pH 7.138 (7.340-7.450)
[2018-05-31 08:50] LABS: PCO2 70.2 mmHg (35.0-45.0)
[2018-05-31 11:35] LABS: BE -6.1 mmol/L (-2 to +3); HCO3 21.6 mmol/L (22.0-26.0)
[2018-05-31 11:38] LABS: PCO2 54.2 mmHg (35.0-45.0); pH 7.218 (7.340-7.450)
[2018-05-31 11:39] LABS: PO2 253.3 mmHg (75.0-100.0)
[2018-05-31 16:05] LABS: ABSOLUTE LYMPHOCYTES 0.1 thou/uL (0.8-5.3); ABSOLUTE MONOCYTES 0.1 thou/uL (0.0-1.2); ABSOLUTE NEUTROPHILS 9.7 thou/uL (1.6-8.1); BASOPHILS 0.4 %; HEMATOCRIT 23.7 % (42.0-52.0); HEMOGLOBIN 8.1 gm/dL (14.0-18.0); LYMPHOCYTES 0.5 %; MCH 32.2 pg (26.0-34.0); MCV 94.5 fL (80.0-100.0); MONOCYTES 1.2 %; MPV 7.9 fl. (7.2-11.1); NUCLEATED RBCS 0 /100WBC; PLATELET COUNT* 170 thou/uL (150-400); POLYS 97.9 %; RBC 2.51 mil/uL (4.50-6.00); RDW-CV 13.2 % (10.5-14.5); WBC 9.9 thou/uL (4.0-11.0)
[2018-05-31 16:17] LABS: ALBUMIN 2.6 g/dL (3.4-5.0); CALCIUM 7.1 mg/dL (8.5-10.1); CREATININE 2.7 mg/dL (0.6-1.3); MAGNESIUM 2.1 mg/dL (1.8-2.4); POTASSIUM 5.3 mmol/L (3.5-5.1); TOTAL BILIRUBIN 0.7 mg/dL (<0.1-1.0); TOTAL PROTEIN 5.4 g/dL (6.4-8.2)
[2018-05-31 16:18] LABS: BE -13.9 mmol/L (-2 to +3); HCO3 12.9 mmol/L (22.0-26.0); PCO2 34.4 mmHg (35.0-45.0)
[2018-05-31 16:20] LABS: PO2 218.1 mmHg (75.0-100.0); pH 7.193 (7.340-7.450)
[2018-05-31 19:29] LABS: CALCIUM 7.3 mg/dL (8.5-10.1); CREATININE 2.9 mg/dL (0.6-1.3); POTASSIUM 5.4 mmol/L (3.5-5.1)
[2018-05-31 23:07] LABS: HEMATOCRIT 22.8 % (42.0-52.0); HEMOGLOBIN 7.5 gm/dL (14.0-18.0); MCH 31.4 pg (26.0-34.0); MCHC 32.9 g/dL (28.0-37.0); MCV 95.5 fL (80.0-100.0); MPV 8.1 fl. (7.2-11.1); RBC 2.39 mil/uL (4.50-6.00); RDW-CV 13.5 % (10.5-14.5); WBC 14.2 thou/uL (4.0-11.0)
[2018-05-31 23:20] LABS: CREATININE 2.8 mg/dL (0.6-1.3); POTASSIUM 5.3 mmol/L (3.5-5.1)
[2018-05-31 23:23] LABS: MAGNESIUM 2.3 mg/dL (1.8-2.4)
[2018-06-01] VITALS (66 sets, daily range): BP systolic 83–144; BP diastolic 37–63
[2018-06-01 03:18] LABS: ABSOLUTE MONOCYTES 0.1 thou/uL (0.0-1.2); ABSOLUTE NEUTROPHILS 14.5 thou/uL (1.6-8.1); BASOPHILS 0.2 %; HEMATOCRIT 22.1 % (42.0-52.0); HEMOGLOBIN 7.3 gm/dL (14.0-18.0); LYMPHOCYTES 0.3 %; MCH 31.2 pg (26.0-34.0); MCHC 33.2 g/dL (28.0-37.0); MCV 94.1 fL (80.0-100.0); MONOCYTES 0.9 %; MPV 8.3 fl. (7.2-11.1); NUCLEATED RBCS 0 /100WBC; PLATELET COUNT* 112 thou/uL (150-400); POLYS 98.6 %; RBC 2.35 mil/uL (4.50-6.00); RDW-CV 13.5 % (10.5-14.5); WBC 14.7 thou/uL (4.0-11.0)
[2018-06-01 03:32] LABS: ALBUMIN 2.6 g/dL (3.4-5.0); CALCIUM 6.9 mg/dL (8.5-10.1); CREATININE 2.4 mg/dL (0.6-1.3); MAGNESIUM 2.1 mg/dL (1.8-2.4); POTASSIUM 5.2 mmol/L (3.5-5.1); TOTAL BILIRUBIN 0.7 mg/dL (<0.1-1.0); TOTAL PROTEIN 5.3 g/dL (6.4-8.2)
[2018-06-01 07:01] LABS: HEMATOCRIT 20.8 % (42.0-52.0); MPV 8.2 fl. (7.2-11.1); RBC 2.21 mil/uL (4.50-6.00); WBC 13.1 thou/uL (4.0-11.0)
[2018-06-01 07:03] LABS: MCH 31.4 pg (26.0-34.0); MCHC 33.4 g/dL (28.0-37.0); MCV 94.1 fL (80.0-100.0); RDW-CV 13.3 % (10.5-14.5)
[2018-06-01 07:09] LABS: CALCIUM 7.4 mg/dL (8.5-10.1); CREATININE 2.1 mg/dL (0.6-1.3); MAGNESIUM 2.1 mg/dL (1.8-2.4); PHOSPHORUS* 5.3 mg/dL (2.5-4.9); POTASSIUM 5.1 mmol/L (3.5-5.1)
[2018-06-01 08:03] LABS: BE 2.7 mmol/L (-2 to +3); HCO3 31.5 mmol/L (22.0-26.0)
[2018-06-01 08:04] LABS: PCO2 79.9 mmHg (35.0-45.0); pH 7.213 (7.340-7.450)
[2018-06-01 08:05] LABS: PO2 330.7 mmHg (75.0-100.0)
[2018-06-01 11:51] LABS: HEMATOCRIT 20.5 % (42.0-52.0); MCH 31.5 pg (26.0-34.0); MCHC 33.6 g/dL (28.0-37.0); MCV 93.9 fL (80.0-100.0); MPV 8.5 fl. (7.2-11.1); RBC 2.18 mil/uL (4.50-6.00)
[2018-06-01 11:56] LABS: CALCIUM 7.1 mg/dL (8.5-10.1); CREATININE 1.9 mg/dL (0.6-1.3); HEMOGLOBIN 6.9 gm/dL (14.0-18.0); MAGNESIUM 1.9 mg/dL (1.8-2.4); PHOSPHORUS* 4.6 mg/dL (2.5-4.9); POTASSIUM 4.8 mmol/L (3.5-5.1)
--- NOTE | 2018-06-01 12:49 | EKG ---
[place] [address] ELECTROCARDIOGRAM REPORT Name: ABBEY GHOSH Room: [address] ADM IN M.R.#: [id number] Admission: 05/30/18 Attend Phys: Domi Choudhary MD Discharge: Date of : 37 Report #: [id number] THIS REPORT FOR: //name// [facility] ED Test Date: 2018-05-30 Test Time: 21:50:53 Pat Name: ABBEY GHOSH Department: Room: [facility] Gender: M Die Stamper: SANGEETA : 1935 Requested By: Jeremy Barajas Order Number: [id number] MD: Jefe Jerome Measurements Intervals [place] Rate: 96 P: 82 [place]: 153 QRS: 113 QRSD: 126 T: 43 QT: 401 QTc: 507 Interpretive Statements Sinus rhythm IVCD, consider atypical RBBB Compared to ECG 05/18/2018 13:50:23 Sinus tachycardia no longer present Myocardial infarct finding no longer present Electronically Signed On 06-01-2018 12:49:20 CDT by Jefe Jerome [email or web address] <ELECTRONICALLY SIGNED> By: Jefe Jerome MD, FACC 06/01/18 1249 2150 2150 Jefe Jerome MD, [facility] /EPI
[2018-06-01 17:19] LABS: HEMATOCRIT 22.6 % (42.0-52.0); HEMOGLOBIN 7.8 gm/dL (14.0-18.0); MCHC 34.8 g/dL (28.0-37.0); MCV 92.1 fL (80.0-100.0); MPV 8.6 fl. (7.2-11.1); RBC 2.45 mil/uL (4.50-6.00); RDW-CV 13.8 % (10.5-14.5); WBC 10.6 thou/uL (4.0-11.0)
[2018-06-01 17:28] LABS: CALCIUM 7.5 mg/dL (8.5-10.1); CREATININE 1.8 mg/dL (0.6-1.3); PHOSPHORUS* 3.8 mg/dL (2.5-4.9); POTASSIUM 4.7 mmol/L (3.5-5.1)
[2018-06-02] VITALS (27 sets, daily range): BP systolic 64–122; BP diastolic 41–67
[2018-06-02 04:43] LABS: BE 0.8 mmol/L (-2 to +3); PCO2 44.8 mmHg (35.0-45.0); pH 7.382 (7.340-7.450)
[2018-06-02 04:46] LABS: PO2 225.4 mmHg (75.0-100.0)
[2018-06-02 05:36] LABS: HEMATOCRIT 23.7 % (42.0-52.0); HEMOGLOBIN 8.1 gm/dL (14.0-18.0); MCH 31.5 pg (26.0-34.0); MCV 92.7 fL (80.0-100.0); MPV 9.3 fl. (7.2-11.1); RBC 2.56 mil/uL (4.50-6.00); RDW-CV 13.8 % (10.5-14.5); WBC 12.3 thou/uL (4.0-11.0)
[2018-06-02 08:05] LABS: CREATININE 2.4 mg/dL (0.6-1.3); MAGNESIUM 1.9 mg/dL (1.8-2.4); POTASSIUM 4.6 mmol/L (3.5-5.1)
[2018-06-02 09:13] LABS: HEPATITIS B SURFACE AG Negative (Negative)
--- NOTE | 2018-06-02 12:31 | CON ---
[address] [address] CONSULTATION Name: ABBEY GHOSH Room: [address] IN M.R.#: [id number] Admission: 05/30/18 Attend Phys: Domi Choudhary MD Discharge: Date of : 37 Report #: [id number] THIS REPORT FOR: //name// CC: FAM physician/PCP Domi Choudhary DATE OF SERVICE: 06/01/2018 ATTENDING PHYSICIAN: Dr. Choudhary. REASON FOR EVALUATION: Pneumonitis complicated by respiratory failure and encephalopathy. HISTORY OF PRESENT ILLNESS: Chart reviewed, patient examined. This is an 82-year-old with history of underlying chronic obstructive pulmonary disease apparently has some swallowing dysfunction as well who was recently hospitalized, latter part of April of this year, with a diagnosis of aspiration pneumonitis. He was disinclined to pursue options to mitigate the aspiration issue. He returned in extremis with unresponsiveness, respiratory failure and was urgently intubated. He was started on pressor support due to hemodynamic instability as well. At this point, he is not responsive and maintains on support. Chest x-ray showed multi-lobe infiltrates. Of note, he has been afebrile. Blood cultures are sterile thus far. Empirically started on therapy with piperacillin and tazobactam as well as linezolid. ALLERGIES: None known. CURRENT MEDICINES: Include levofloxacin, Zosyn, methylprednisolone, pantoprazole and linezolid. He is on vasopressin. PAST MEDICAL HISTORY: As noted above, COPD, hypertension, history of rheumatic fever as a child and history of head and neck cancer. SOCIAL HISTORY: Smokes and occasional ethanol. FAMILY HISTORY: Noncontributory. REVIEW OF SYSTEMS: Not obtainable. PHYSICAL EXAMINATION: GENERAL: Appears chronically ill, undernourished. He is at this point not responsive. He is maintained on a ventilatory support and does have a chest tube in place. He is on dialysis. He appears chronically ill and undernourished. VITAL SIGNS: Temperature 97.2, pulse 95, respirations 22 and blood pressure 112/58[place] [address] CONSULTATION Name: ABBEY GHOSH Room: [address] IN [facility]#: [id number] Admission: 05/30/18 Attend Phys: Domi Choudhary MD Discharge: Date of : 37 Report #: [id number] SKIN: Very thin loss of subcutaneous tissue and skin thinning. HEENT: Remarkable for endotracheal tube. LUNGS: Scattered coarse breath sounds and somewhat diminished. HEART: Regular, borderline tachycardic. There is soft systolic murmur. ABDOMEN: Mildly distended, some firmness to it although there are no overt peritoneal signs. GENITOURINARY: Deferred. RECTAL: Deferred. LABORATORY DATA: Initial ABG: pH 7.162, pCO2 of 71.8, pO2 of 349.8 and that was on FiO2 of 100% via mechanical ventilation. CBC: White count 10.3, H and H 8.4 and 24.7 and platelets of 243. He does have a lymphocytopenia of 300. Lactic acid elevated at 4.2 initially and repeat was 3.1. Most recent electrolytes: Sodium 133, potassium 4.8, chloride 98, bicarbonate is 31, BUN and creatinine 40 and 1.9 and glucose of 163. Estimated GFR of 34. CBC most recently, white count 13.0, H and H 6.9 and 28.5 and platelets of 85. Blood cultures are sterile thus far collected at time of admission. Chest x-ray, bilateral infiltrates. Liver functions otherwise unremarkable. Albumin of 2.6. Total protein 5.3. Venous Doppler of lower extremity showed no evidence of DVT. CT of the chest, bilateral infiltrates consistent with multifocal pneumonitis, severe emphysema was noted, spiculated right upper lobe nodule and large hilar and mediastinal lymph nodes. ASSESSMENT: Pneumonitis complicated by respiratory failure in patient that is apparently at high risk as previously described for aspiration pneumonitis. I think it is reasonable to continue broad-spectrum antimicrobial therapy at this point. We have noted his several clinical and laboratory parameters that suggest he remains quite critically ill. Worsening thrombocytopenia could be issue with the linezolid at this point. We will adjust treatment regimen. Overall, his prognosis appears quite guarded. <ELECTRONICALLY SIGNED> By: Emile Hamm MD 06/02/18 1231 1225 [id number] Hamm MD /nt
[2018-06-02 12:36] LABS: HEMATOCRIT 23.8 % (42.0-52.0); HEMOGLOBIN 8.1 gm/dL (14.0-18.0); MCH 31.3 pg (26.0-34.0); MCHC 33.8 g/dL (28.0-37.0); MCV 92.6 fL (80.0-100.0); MPV 8.8 fl. (7.2-11.1); RBC 2.57 mil/uL (4.50-6.00); RDW-CV 13.9 % (10.5-14.5); WBC 14.1 thou/uL (4.0-11.0)
[2018-06-02 12:53] LABS: CALCIUM 7.8 mg/dL (8.5-10.1); MAGNESIUM 1.9 mg/dL (1.8-2.4); PHOSPHORUS* 3.4 mg/dL (2.5-4.9); POTASSIUM 4.6 mmol/L (3.5-5.1)
[2018-06-02 17:21] LABS: HEMATOCRIT 24.6 % (42.0-52.0); HEMOGLOBIN 8.4 gm/dL (14.0-18.0); MCH 31.6 pg (26.0-34.0); MCHC 34.3 g/dL (28.0-37.0); MPV 9.2 fl. (7.2-11.1); RBC 2.67 mil/uL (4.50-6.00); RDW-CV 13.9 % (10.5-14.5); WBC 15.1 thou/uL (4.0-11.0)
[2018-06-02 17:30] LABS: CALCIUM 7.9 mg/dL (8.5-10.1); CREATININE 1.9 mg/dL (0.6-1.3); MAGNESIUM 1.9 mg/dL (1.8-2.4); PHOSPHORUS* 3.2 mg/dL (2.5-4.9)
[2018-06-02 20:48] LABS: HEMATOCRIT 26.5 % (42.0-52.0); MCH 31.6 pg (26.0-34.0); MCHC 34.2 g/dL (28.0-37.0); MCV 92.4 fL (80.0-100.0); MPV 9.3 fl. (7.2-11.1); RBC 2.86 mil/uL (4.50-6.00); RDW-CV 13.7 % (10.5-14.5); WBC 15.4 thou/uL (4.0-11.0)
[2018-06-02 20:58] LABS: CALCIUM 8.4 mg/dL (8.5-10.1); PHOSPHORUS* 2.9 mg/dL (2.5-4.9); POTASSIUM 4.6 mmol/L (3.5-5.1)
[2018-06-03] VITALS (67 sets, daily range): BP systolic 75–152; BP diastolic 44–85
[2018-06-03 01:12] LABS: HEMATOCRIT 25.6 % (42.0-52.0); HEMOGLOBIN 8.7 gm/dL (14.0-18.0); MCH 31.8 pg (26.0-34.0); MCHC 34.2 g/dL (28.0-37.0); MCV 92.9 fL (80.0-100.0); MPV 9.6 fl. (7.2-11.1); RBC 2.75 mil/uL (4.50-6.00); RDW-CV 13.9 % (10.5-14.5); WBC 18.8 thou/uL (4.0-11.0)
[2018-06-03 01:26] LABS: MAGNESIUM 1.9 mg/dL (1.8-2.4); PHOSPHORUS* 3.6 mg/dL (2.5-4.9); POTASSIUM 4.7 mmol/L (3.5-5.1)
[2018-06-03 05:31] LABS: BE 0.8 mmol/L (-2 to +3); HCO3 25.1 mmol/L (22.0-26.0); PO2 121.5 mmHg (75.0-100.0); pH 7.427 (7.340-7.450)
[2018-06-03 09:04] LABS: HEMATOCRIT 24.5 % (42.0-52.0); HEMOGLOBIN 8.3 gm/dL (14.0-18.0); MCH 31.3 pg (26.0-34.0); MCHC 33.7 g/dL (28.0-37.0); MCV 93.1 fL (80.0-100.0); RBC 2.64 mil/uL (4.50-6.00); RDW-CV 13.8 % (10.5-14.5); WBC 12.4 thou/uL (4.0-11.0)
[2018-06-03 09:21] LABS: ALBUMIN 1.8 g/dL (3.4-5.0); CALCIUM 7.7 mg/dL (8.5-10.1); CREATININE 2.3 mg/dL (0.6-1.3); PHOSPHORUS* 3.1 mg/dL (2.5-4.9); POTASSIUM 4.6 mmol/L (3.5-5.1); TOTAL BILIRUBIN 0.5 mg/dL (<0.1-1.0); TOTAL PROTEIN 4.7 g/dL (6.4-8.2)
[2018-06-03 11:27] LABS: APTT 37.8 Seconds (25.0-31.3); INR 1.2; PROTIME 11.8 Seconds (9.20-11.50)
[2018-06-03 14:56] LABS: FIBRINOGEN 612 mg/dL (200-340)
[2018-06-03 20:06] LABS: HEMATOCRIT 25.8 % (42.0-52.0); HEMOGLOBIN 8.6 gm/dL (14.0-18.0); MCHC 33.4 g/dL (28.0-37.0); MPV 8.6 fl. (7.2-11.1); RBC 2.78 mil/uL (4.50-6.00); RDW-CV 13.8 % (10.5-14.5); WBC 17.2 thou/uL (4.0-11.0)
[2018-06-03 20:20] LABS: CREATININE 2.4 mg/dL (0.6-1.3); PHOSPHORUS* 3.4 mg/dL (2.5-4.9)
[2018-06-04] VITALS (46 sets, daily range): BP systolic 95–180; BP diastolic 60–90
[2018-06-04 01:44] LABS: HEMATOCRIT 24.6 % (42.0-52.0); HEMOGLOBIN 8.3 gm/dL (14.0-18.0); MCH 31.3 pg (26.0-34.0); MCHC 33.9 g/dL (28.0-37.0); MCV 92.4 fL (80.0-100.0); MPV 10.1 fl. (7.2-11.1); RBC 2.66 mil/uL (4.50-6.00); RDW-CV 13.7 % (10.5-14.5); WBC 17.3 thou/uL (4.0-11.0)
[2018-06-04 02:14] LABS: CALCIUM 7.8 mg/dL (8.5-10.1); CREATININE 2.2 mg/dL (0.6-1.3); MAGNESIUM 1.9 mg/dL (1.8-2.4); POTASSIUM 4.8 mmol/L (3.5-5.1)
[2018-06-04 03:55] LABS: BE -1.2 mmol/L (-2 to +3); HCO3 22.6 mmol/L (22.0-26.0); pH 7.441 (7.340-7.450)
[2018-06-04 03:58] LABS: PO2 133.6 mmHg (75.0-100.0)
[2018-06-04 05:37] LABS: HEMATOCRIT 25.5 % (42.0-52.0); HEMOGLOBIN 8.7 gm/dL (14.0-18.0); MCH 31.6 pg (26.0-34.0); MCHC 34.3 g/dL (28.0-37.0); MCV 92.3 fL (80.0-100.0); MPV 8.7 fl. (7.2-11.1); RBC 2.77 mil/uL (4.50-6.00); RDW-CV 13.8 % (10.5-14.5); WBC 19.4 thou/uL (4.0-11.0)
[2018-06-04 05:57] LABS: ALBUMIN 1.8 g/dL (3.4-5.0); CALCIUM 7.6 mg/dL (8.5-10.1); CREATININE 2.2 mg/dL (0.6-1.3); POTASSIUM 4.9 mmol/L (3.5-5.1); TOTAL BILIRUBIN 0.5 mg/dL (<0.1-1.0); TOTAL PROTEIN 4.9 g/dL (6.4-8.2)
[2018-06-04 06:07] LABS: ALBUMIN 1.8 g/dL (3.4-5.0); CALCIUM 7.6 mg/dL (8.5-10.1); CREATININE 2.2 mg/dL (0.6-1.3); POTASSIUM 4.9 mmol/L (3.5-5.1)
--- NOTE | 2018-06-04 09:21 | CON ---
[address] [address] CONSULTATION Name: ABBEY GHOSH Room: [address] IN M.R.#: [id number] Admission: 05/30/18 Attend Phys: Domi Choudhary MD Discharge: Date of : 37 Report #: [id number] THIS REPORT FOR: //name// CC: FAM physician/PCP Domi Choudhary DATE OF SERVICE: 05/31/2018 REQUESTING PHYSICIAN: Dr. Choudhary. INDICATION FOR CONSULTATION: Mtiys-zh-udeswni hypoxemic and hypercarbic respiratory failure. HISTORY OF PRESENT ILLNESS: This is an 82-year-old gentleman. We had recently seen him in the hospital during an admission just a few weeks ago. The patient does have a history of throat cancer. When I evaluated him during the last hospitalization, it appeared obvious that he was aspirating. The patient at that time had limited understanding of his circumstances and he had refused to have a PEG tube placed. While he does have a history of throat cancer, the patient in fact was evaluated by Radiation Oncology earlier this year and there was no evidence of recurrence at this time. The patient is an active smoker and does have oxygen at home and does have COPD. The patient is now admitted again with respiratory distress. Information available is limited. Per the records, the patient was admitted with acute respiratory distress with marked hypoxemia. He also has been in shock. He is on high doses of pressors at this time. The patient while still remaining significantly acidotic, which is a combination of respiratory and metabolic acidosis, at this time is ventilating and oxygenating adequately. He, however, is on 100% FiO2. The patient upon initial evaluation by the primary service is reported to have had several family members which were intoxicated and agitated in the waiting room. The patient at this time is on the ventilator and is unable to provide a further history or review of systems. PAST MEDICAL HISTORY: Throat cancer, there was a scope performed by Radiation Oncology earlier this year and there was no recurrence noted. Chronic aspiration, the patient previously has refused a PEG tube. He has had a recent EGD, COPD, is on long-term oxygen. The recent echo shows a normal left ventricular EF around 60% without elevation in right heart pressures. He has had extensive infiltrates on his previous chest x-rays. These, however, had improved on the last available chest x-ray. There is a lung mass also discovered in the last CT, however, my clinical impression was this is more likely secondary to infiltrate; however, malignancy in the lung was not definitely ruled out at that time. He has previously had a mass removed from his neck, appendectomy, hypertension, rheumatic fever at the age of 15, ruptured appendix, mesh placement in the abdomen, broken leg as a child, [place] [address] CONSULTATION Name: ABBEY GHOSH Room: [facility] IN M.R.#: [id number] Admission: 05/30/18 Attend Phys: Domi Choudhary MD Discharge: Date of : 37 Report #: [id number] SOCIAL HISTORY: He is an active smoker, has been smoking for several decades, unable to quantify exactly at this time. No known history of heavy alcohol use or illegal drug use. CURRENT MEDICATIONS: List in [employer] reviewed. HOME MEDICATIONS: The list is also in [employer] reviewed. Note that the patient is on a proton pump inhibitor at home. Also, recently received Zosyn and then Augmentin. FAMILY HISTORY: There is no pertinent family history. ALLERGIES: No known drug allergies. PHYSICAL EXAMINATION: GENERAL: The patient is in shock. He is on multiple pressors. VITAL SIGNS: We are maintaining a blood pressure of around 90/60, however, is cold and clammy and it is not clear as to whether we are getting an accurate reading. He has been oxygenating 99% on the last available arterial blood gas. He was on a tidal volume of 500 with an AC rate of 14, FIO2 100% and PEEP of 5. I have increased her tidal volume just now to 600 with a rate increase to 18. He is still maintaining peak airway pressure around 30. He has a low-grade elevation in temperature up to 37.3. HEENT: Head is normocephalic and atraumatic. There is an endotracheal tube in place. NECK: Does not show raised JVP, asymmetry, mass or lymph nodes. CHEST: Symmetrical expansion on inspection and palpation. On auscultation, breath sounds are bilaterally equal, but decreased. I do not hear any added sounds. HEART: Regular. There is no murmur. ABDOMEN: Soft, nontender. EXTREMITIES: Lower extremities show 1+ edema. There is no calf tenderness. NEUROLOGIC: There is minimal response to pain. Detailed neurological examination is not possible at this time. LABORATORY DATA: The patient's chest x-ray is reviewed and compared with previous chest x-rays. There are extensive bilateral infiltrates, most prominent in the left upper lobe as well as the right middle lobe and lower lobe. As noted, he has previously had infiltrates, but these infiltrates appear to be new compared with his previously seen infiltrates which had improved. The patient's lab work does show creatinine elevated to 2.3. The patient has had 15 mL of urine overnight. His baseline creatinine is normal. His CBC, which does show anemia as well as coagulation studies are reviewed. Arterial blood gas as mentioned is also reviewed. [address] [address] CONSULTATION Name: ABBEY GHOSH Room: [address] IN .R.#: [id number] Admission: 05/30/18 Attend Phys: Domi Choudhary MD Discharge: Date of : 37 Report #: [id number] of the chest as well as head performed today are also reviewed. ASSESSMENT AND PLAN: 1. Eozib-nr-bambiho hypoxemic and hypercarbic respiratory failure. He was on continuous sedation, which I have discontinued. I have increased his tidal volume as well as a respiratory rate. I will give him p.r.n. sedation if needed. He has a central line. We are placing an arterial line now, which I had requested. We will subsequently obtain arterial blood gas again and then we will reassess the ventilator. 2. Aspiration pneumonia/septic shock. We will bolus him with 25 grams of albumin. He does appear to be able to tolerate more volume. Once the arterial blood gas is available, we will adjust the IV fluids. We may consider adding bicarbonate if his pH still remains decreased. An arterial blood gas is being placed as mentioned above. For now, we will continue with broad spectrum antibiotics. Note that the patient was recently treated extensively with Zosyn and then with Augmentin. At this time, he is on Zosyn, Levaquin and vancomycin. Considering acute renal failure, I discontinued vancomycin. I add Zyvox. We will obtain more cultures and serologies. If the patient's condition stabilizes, then considering recent use of Zosyn an option could be to discontinue Zosyn, continue Levaquin, add Flagyl for anaerobic coverage and then assess as to whether Zyvox needs to be continued. 3. Chronic obstructive pulmonary disease exacerbation, on nebulized bronchodilators as well as Solu-Medrol. We will continue Solu-Medrol as currently prescribed. I increased the frequency for the nebulized bronchodilators. 4. Throat cancer. The patient's CT chest from the previous admission is reviewed. The patient's CT chest performed today, which does show new infiltrates, also is reviewed. Note that the patient does have a 1.3 cm lung nodule. As noted previously, my clinical impression was that this is likely secondary to infiltrates and not a new malignancy; however, malignancy cannot be completely ruled out and will be possible. Therefore, if the patient does recover from the current illness, then I will plan on repeating a CT chest in 3 months. 5. Lung nodules, see discussion above. 6. Acute renal failure as discussed above. We will also check a magnesium level. 7. Deep vein thrombosis prophylaxis. I switched his Lovenox over to subQ heparin, considering elevated creatinine. 8. Mcc proton pump inhibitor use, Protonix and then chronic aspiration. See discussion above. The patient had previously declined a PEG tube. The patient is critically [place] [address] CONSULTATION Name: ABBEY GHOSH Room: [address] IN .R.#: [id number] Admission: 05/30/18 Attend Phys: Domi Choudhary MD Discharge: Date of : 37 Report #: [id number] Total time spent providing critical care to this patient today is 45 minutes. <ELECTRONICALLY SIGNED> By: Fidel Harrison MD 06/04/18 0921 1100 [id number] Vieira MD /nt
--- NOTE | 2018-06-04 14:13 | CON ---
[address] [address] CONSULTATION Name: ABBEY GHOSH Room: [address] IN .R.#: [id number] Admission: 05/30/18 Attend Phys: Domi Choudhary MD Discharge: Date of : 37 Report #: [id number] THIS REPORT FOR: //name// CC: KRUNAL physician/PCP Domi Choudhary DATE OF SERVICE: 06/03/2018 REASON FOR CONSULTATION: Thrombocytopenia. SUBJECTIVE: An 82-year-old male who was admitted on 05/30/2018 after he was found to be on the floor unresponsive. He had a previous head and neck cancer, was seen by radiation therapy, and the patient upon this admission was found to be in respiratory failure, got intubated and he required multiple vasopressors. Initial chest x-ray showed right pneumothorax and bilateral infiltrates. In terms of his medications, the patient has been exposed to heparin. Currently, he is on cefepime, vancomycin; however, he was also given Zyvox twice a day on 05/31/2018 and 06/01/2018. Platelet count dropped from 05/31/2018 from 170 to 37 today. Also, he required blood transfusion for hemoglobin of 6.9. REVIEW OF SYSTEMS: Unable to be obtained. PAST MEDICAL HISTORY: Hypertension, rheumatic fever, COPD, head and neck cancer, status post radiation. MEDICATIONS: Per admission list. ALLERGIES: No known allergies. PAST SURGICAL HISTORY: Resection of cervical mass, appendectomy. SOCIAL HISTORY: He is an active smoker. He drinks alcohol on a daily basis. PHYSICAL EXAMINATION: VITAL SIGNS: Today, temperature is 36.0, pulse is 77, respirations 22, blood pressure is 101/64, SpO2 is 98% on the ventilator. GENERAL: The patient was sedated. LUNGS: Decreased breathing sounds with coarse breathing sounds. HEART: Regular rate and rhythm, S1, S2 within normal limits. ABDOMEN: Soft. EXTREMITIES: No edema, no cyanosis, no clubbing. LABORATORY DATA: Today, WBC is 12.4, hemoglobin 8.3, platelets 37. PT is 11.8, PTT 37. D-dimer is 4.4, creatinine is 2.3, lactic acid 2.6. B12 today was 1297. [place] [address] CONSULTATION Name: ABBEY GHOSH Room: [address]#: [id number] Admission: 05/30/18 Attend Phys: Domi Choudhary MD Discharge: Date of : 37 Report #: [id number] IMAGING: Chest x-ray showed increase in the size of the right apical pneumothorax. ASSESSMENT AND PLAN: An 82-year-old male who has been admitted because of being unresponsive. He had respiratory failure with renal failure and septic shock. He is on continuous renal replacement therapy. Source of infection is aspiration pneumonia. The patient was treated with vancomycin and Zyvox since admission. He dropped his platelets from 170 on 05/31/2018 to 37 today. He had mild elevation of PT and PTT. The etiology of his thrombocytopenia is multifactorial, whether it is drug related or myelosuppression due to septic shock. I agree with heparin-induced thrombocytopenia antibodies, which is pending at this point. 2. We will obtain peripheral blood smear hemolysis parameters including LDH, haptoglobin, retic count and JESSICA. From Hematology standpoint, there is no contraindication to transfuse platelets at this point for replacement of his chest tube. PROGNOSIS: Guarded. <ELECTRONICALLY SIGNED> By: Janet Leyva MD 06/04/18 1413 1255 [id number] Leyva MD /nt
[2018-06-05] VITALS (31 sets, daily range): BP systolic 66–143; BP diastolic 42–77
[2018-06-05 05:11] LABS: HEMATOCRIT 22.4 % (42.0-52.0); HEMOGLOBIN 7.6 gm/dL (14.0-18.0); MCH 31.2 pg (26.0-34.0); MCHC 34.2 g/dL (28.0-37.0); MCV 91.1 fL (80.0-100.0); MPV 10.6 fl. (7.2-11.1); RBC 2.46 mil/uL (4.50-6.00); RDW-CV 13.7 % (10.5-14.5); WBC 13.6 thou/uL (4.0-11.0)
[2018-06-05 05:28] LABS: ALBUMIN 1.5 g/dL (3.4-5.0); CALCIUM 7.1 mg/dL (8.5-10.1); CREATININE 2.1 mg/dL (0.6-1.3); MAGNESIUM 1.8 mg/dL (1.8-2.4); PHOSPHORUS* 2.9 mg/dL (2.5-4.9); POTASSIUM 4.3 mmol/L (3.5-5.1); TOTAL BILIRUBIN 0.5 mg/dL (<0.1-1.0); TOTAL PROTEIN 3.8 g/dL (6.4-8.2)
[2018-06-05 06:41] LABS: URINE BILIRUBIN NEGATIVE (Negative); URINE BLOOD 3+ (Negative); URINE CLARITY CLEAR; URINE COLOR YELLOW; URINE GLUCOSE-RANDOM TRACE (Negative); URINE KETONES NEGATIVE (Negative); URINE LEUKOCYTES-REFLEX TRACE (Negative); URINE NITRITE-REFLEX NEGATIVE (Negative); URINE PROTEIN TRACE (Negative); URINE SPECIFIC GRAVITY 1.015 (1.005-1.030); URINE UROBILINOGEN 0.2 E.U./dl (0.2-1.0)
[2018-06-05 06:48] LABS: BACTERIA-REFLEX 1-9 Few /HPF (None Seen); MUCUS 0-3 Light strn/LPF (None Seen); SQUAMOUS 0-3 Few /LPF (0-3); URINE WBC-REFLEX 0-5 Rare /HPF (0-5)
[2018-06-05 06:49] LABS: CASTS None Seen /LPF (None Seen); CRYSTALS None Seen /LPF (None Seen)
[2018-06-05 08:40] LABS: BE -1.8 mmol/L (-2 to +3); HCO3 22.3 mmol/L (22.0-26.0); PCO2 35.1 mmHg (35.0-45.0); PO2 71.6 mmHg (75.0-100.0); pH 7.421 (7.340-7.450)
[2018-06-05 15:47] LABS: APTT 28.5 Seconds (25.0-31.3); INR 1.2; PROTIME 12.2 Seconds (9.20-11.50)
[2018-06-05 23:05] LABS: COMPLEMENT-C4 13 mg/dL (14-44)
[2018-06-06] VITALS (58 sets, daily range): BP systolic 76–141; BP diastolic 45–82
[2018-06-06 06:13] LABS: BE -3.8 mmol/L (-2 to +3); HCO3 22.8 mmol/L (22.0-26.0); PCO2 48.4 mmHg (35.0-45.0); PO2 97.7 mmHg (75.0-100.0)
[2018-06-06 06:14] LABS: HEMATOCRIT 27.6 % (42.0-52.0); HEMOGLOBIN 9.4 gm/dL (14.0-18.0); MCH 31.3 pg (26.0-34.0); MCHC 33.9 g/dL (28.0-37.0); MCV 92.4 fL (80.0-100.0); MPV 11.8 fl. (7.2-11.1); RBC 2.99 mil/uL (4.50-6.00); RDW-CV 14.1 % (10.5-14.5); WBC 26.5 thou/uL (4.0-11.0)
[2018-06-06 06:18] LABS: pH 7.291 (7.340-7.450)
[2018-06-06 06:28] LABS: ALBUMIN 1.7 g/dL (3.4-5.0); CALCIUM 7.2 mg/dL (8.5-10.1); POTASSIUM 5.1 mmol/L (3.5-5.1); TOTAL BILIRUBIN 0.7 mg/dL (<0.1-1.0); TOTAL PROTEIN 4.7 g/dL (6.4-8.2)
[2018-06-06 06:32] LABS: CREATININE 3.1 mg/dL (0.6-1.3)
[2018-06-07] VITALS (41 sets, daily range): BP systolic 78–177; BP diastolic 40–91
[2018-06-07 04:45] LABS: HEMATOCRIT 22.1 % (42.0-52.0); MCH 30.8 pg (26.0-34.0); MCHC 33.3 g/dL (28.0-37.0); MCV 92.3 fL (80.0-100.0); MPV 12.3 fl. (7.2-11.1); RBC 2.39 mil/uL (4.50-6.00); RDW-CV 13.6 % (10.5-14.5); WBC 23.5 thou/uL (4.0-11.0)
[2018-06-07 05:05] LABS: CALCIUM 6.8 mg/dL (8.5-10.1); CREATININE 2.6 mg/dL (0.6-1.3); MAGNESIUM 1.8 mg/dL (1.8-2.4); POTASSIUM 4.4 mmol/L (3.5-5.1)
[2018-06-07 05:24] LABS: HEMOGLOBIN 7.4 gm/dL (14.0-18.0)
[2018-06-07 13:09] LABS: ANTI-DNA SCREEN <1 IU/mL (0-9); ANTI-RNP <0.2 AI (0.0-0.9)
[2018-06-08] VITALS (30 sets, daily range): BP systolic 95–150; BP diastolic 39–99
[2018-06-08 05:33] LABS: MCH 30.4 pg (26.0-34.0); MCHC 32.9 g/dL (28.0-37.0); MCV 92.1 fL (80.0-100.0); MPV 11.8 fl. (7.2-11.1); RBC 1.96 mil/uL (4.50-6.00); WBC 19.9 thou/uL (4.0-11.0)
[2018-06-08 05:42] LABS: HEMATOCRIT 18.1 % (42.0-52.0)
[2018-06-08 06:09] LABS: ALBUMIN 1.3 g/dL (3.4-5.0); CREATININE 2.4 mg/dL (0.6-1.3); POTASSIUM 4.6 mmol/L (3.5-5.1); TOTAL BILIRUBIN 0.4 mg/dL (<0.1-1.0); TOTAL PROTEIN 3.9 g/dL (6.4-8.2)
[2018-06-08 12:28] LABS: HEMATOCRIT 21.4 % (42.0-52.0); HEMOGLOBIN 7.1 gm/dL (14.0-18.0)
[2018-06-09] VITALS (18 sets, daily range): BP systolic 99–140; BP diastolic 43–63
[2018-06-09 06:08] LABS: BE -1.3 mmol/L (-2 to +3); HCO3 22.5 mmol/L (22.0-26.0); PO2 79.3 mmHg (75.0-100.0); pH 7.438 (7.340-7.450)
[2018-06-09 06:39] LABS: HEMATOCRIT 20.8 % (42.0-52.0); MCH 30.3 pg (26.0-34.0); MCHC 33.1 g/dL (28.0-37.0); MCV 91.5 fL (80.0-100.0); MPV 11.8 fl. (7.2-11.1); RBC 2.28 mil/uL (4.50-6.00); RDW-CV 14.8 % (10.5-14.5); WBC 21.7 thou/uL (4.0-11.0)
[2018-06-09 06:44] LABS: HEMOGLOBIN 6.9 gm/dL (14.0-18.0)
[2018-06-09 06:50] LABS: ALBUMIN 1.3 g/dL (3.4-5.0); CREATININE 3.2 mg/dL (0.6-1.3); MAGNESIUM 1.7 mg/dL (1.8-2.4); POTASSIUM 5.2 mmol/L (3.5-5.1); TOTAL BILIRUBIN 0.4 mg/dL (<0.1-1.0); TOTAL PROTEIN 4.2 g/dL (6.4-8.2)
--- NOTE | 2018-06-09 16:55 | CARD ---
[address] [address] CARDIAC CATH REPORT Name: ABBEY GHOSH Room: [address] IN M.R.#: [id number] Admission: 05/30/18 Attend Phys: Domi Choudhary MD Discharge: Date of : 39 Report #: [id number] THIS REPORT FOR: //name// CC: [facility] physician/PCP Domi Choudhary INDICATION: Complete heart block. PROCEDURE: Temporary pacemaker placement. PROCEDURE IN DETAIL: The patient is critically ill in the ICU and line is being placed by medical necessity. The area of the left chest was prepped and draped in sterile fashion. Local anesthesia was achieved with 1% lidocaine. A 7-Tanzanian introducer was placed using the percutaneous technique into the left subclavian vein without difficulty. A balloon tipped temporary pacing wire was advanced until adequate ventricular capture was noted on reconciliation machine operator. The pacing threshold at its current location is 0.6 volts at 0.40 milliseconds. The mode will be set in VVR mode at a rate of 60 beats per minute for backup pacing as needed. The 7-Tanzanian introducer was then secured using interrupted stitches of silk suture. A sterile covering the catheter was secured proximally and distally. A sterile dressing was placed over the catheter. There were no complications. Follow up chest x-ray shows known subcutaneous emphysema. The pacing wire tip appears to be on the right ventricular septum. IMPRESSION: 1. Complete heart block. 2. Successful placement of temporary pacemaker. <ELECTRONICALLY SIGNED> By: Lupillo Jimenez MD, FACC 06/09/18 1655 [id number] Joe Jimenez MD, FACC /nt
--- NOTE | 2018-06-09 16:55 | CON ---
[address] [address] CONSULTATION Name: ABBEY GHOSH Room: [address] IN M.R.#: [id number] Admission: 05/30/18 Attend Phys: Domi Choudhary MD Discharge: Date of : 39 Report #: [id number] THIS REPORT FOR: //name// CC: [facility] physician/PCP Domi Choudhary DATE OF SERVICE: 06/08/2018 INDICATION: Complete heart block. HISTORY OF PRESENT ILLNESS: The patient is an 82-year-old gentleman with underlying lung disease. He has a history of head and neck cancer, status post resection and radiation treatment 4 years ago. His most recent evaluation showed no recurrence of disease. He was apparently admitted in the hospital with aspiration pneumonia approximately a week and a half ago. In that time, he has had severe anemia and thrombocytopenia, treated with transfusions as well as bone marrow suppression. He has had acute renal failure requiring dialysis. He has developing pneumonia. He is intubated. He has developed pneumothoraces requiring chest tube placement several days ago. He has had persistent air leak and subcutaneous emphysema. He is currently intubated. He is awake. Communication is limited due to his intubated status. Today, he was noted to have a 15-second pause on the ict project manager. P waves were noted with no AV conduction. The patient has no prior history of cardiac disease or electrophysiologic abnormality. Electrolyte status is stable. PAST MEDICAL HISTORY: 1. Chronic obstructive pulmonary disease. 2. Acute on chronic renal failure. 3. Lung mass. 4. Chronic tobacco use. 5. Pneumonia. 6. Respiratory failure. 7. Sepsis. PAST SURGICAL HISTORY: Head and neck cancer with resection 4 years ago, appendectomy remotely, fractured leg as a child, skin cancer removal. FAMILY HISTORY: Noncontributory. SOCIAL HISTORY: The patient is a chronic smoker and uses alcohol occasionally per notes available. CURRENT MEDICATIONS: Furosemide 40 mg IV b.i.d., MiraLax 17 grams per tube daily, methylprednisolone 40 mg IV q. 8 hours, etomidate as directed, cefepime 1 g as directed, Combivent inhaler treatments. Fentanyl p.r.n[address] [place] [address] CONSULTATION Name: ABBEY GHOSH Room: [address]#: [id number] Admission: 05/30/18 Attend Phys: Domi Choudhary MD Discharge: Date of : 39 Report #: [id number] p.r.n., Levophed drip as needed. PHYSICAL EXAMINATION: VITAL SIGNS: Blood pressure 121/53, pulse presently in the 90s and regular. GENERAL: This is a cachectic elderly male, who is intubated, but appears alert. HEENT: Extraocular muscles intact. Head is normocephalic, atraumatic. NECK: Shows no obvious jugular venous distention. CHEST: Reveals diffuse breath sounds decreased throughout with expiratory rhonchi. The patient has subcutaneous emphysema noted throughout his upper chest. ABDOMEN: Reveals normal bowel sounds. The abdomen is soft, nontender. EXTREMITIES: Shows no edema. LABORATORY DATA: Reviewed. Sodium 139, potassium 4.6, chloride 104, bicarbonate 28, BUN 68, creatinine 2.4, serum glucose 141. LFTs essentially unremarkable. Calcium 7.0, magnesium 1.8. White blood cell count 19.9, hemoglobin 7.1, platelet count 62,000. Chest x-ray shows a right pneumothorax and persistent infiltrates. IMPRESSION AND RECOMMENDATIONS: 1. Complete heart block. Plan temporary pacemaker placement at this time. We will observe to see whether permanent pacemaker placement would be advisable. At this point, I would like to see the patient's clinical status improve regarding his sepsis/pneumonia. 2. Pneumonia/sepsis, per ID and primary physicians. 3. Acute renal failure, per Nephrology. 4. Chronic obstructive pulmonary disease. The patient intubated and being followed by Respiratory. We will follow. <ELECTRONICALLY SIGNED> By: Lupillo Jimenez MD, FACC 06/09/18 1655 [id number] [id number] Jimenez MD, FACC /nt
--- NOTE | 2018-06-30 09:09 | CON ---
[address] [address] CONSULTATION Name: ABBEY GHOSH Room: [address] IN M.R.#: [id number] Admission: 05/30/18 Attend Phys: Domi Choudhary MD Discharge: 06/09/18 Date of : 39 Report #: [id number] THIS REPORT FOR: //name// CC: [facility] physician/PCP Domi Choudhary DATE OF SERVICE: 05/31/2018 Nephrology Consultation REQUESTING PHYSICIAN: Domi Choudhary MD REASON FOR CONSULTATION: Acute anuric renal failure in setting of septic shock and respiratory failure. HISTORY OF PRESENT ILLNESS: The patient is an 82-year-old gentleman who was admitted to [facility] yesterday with report of his having had been found unresponsive by family members. He was intubated en route to the hospital and was diagnosed with aspiration pneumonia according to history and physical. Family members were not able to provide any history, being agitated and intoxicated in the waiting room when he presented. There is a report of the patient having had failed swallow studies prior to admission to this hospitalization. He was advised to have a PEG tube, but he refused that and was dismissed home. In any event, while here, he has been in shock, requiring multiple vasopressors. He has been getting IV fluid resuscitation. He is on 100% O2 via mechanical ventilation and has been anuric since last night and all day today. This evening, I was contacted for consultation in order to arrange for continuous dialysis. The patient is unable to provide any history. The history I have is from review of the history and physical on the chart. PAST MEDICAL HISTORY: Includes previous history of acute renal failure, COPD, dizziness, falls, headaches, hypokalemia, hyponatremia, left anterior knee pain, lung mass. The history and physical refers to this, stating that he had a CT scan and past pulmonary nodules and adenopathy, unclear if infection or tumor related and followup CT was recommended for May to be done. He has a history of tobacco dependence, pneumonia, respiratory failure, sepsis, and strep pneumonia. ALLERGIES: None are listed. FAMILY HISTORY: Unobtainable. SOCIAL HISTORY: Unobtainable. MEDICATIONS: His medications that are reported on the history and physical include albuterol, cetirizine, diphenhydramine, Augmentin, fluconazole, [place] [address] CONSULTATION Name: ABBEY GHOSH Room: [address]#: [id number] Admission: 05/30/18 Attend Phys: Domi Choudhary MD Discharge: 06/09/18 Date of : 39 Report #: [id number] acetaminophen, nifedipine, lisinopril and hydrochlorothiazide. Additional history includes a history of throat cancer, skin cancer, hypertension, rheumatic fever as a child and appendectomy, broken leg as a child, a ruptured appendix with mesh placement in the past. REVIEW OF SYSTEMS: Unobtainable. PHYSICAL EXAMINATION: VITAL SIGNS: Blood pressure by art line is 126 systolically. GENERAL: He is on Levophed, norepinephrine as vasopressin. HEAD, EARS, EYES, NOSE, AND THROAT: Normocephalic. He does have temporal wasting noted. He is orally intubated and on mechanical ventilation, FiO2 of 100%. HEART: Regular rhythm, no rub. LUNGS: Show clear breath sounds in the left chest. He has decreased breath sounds in the right chest consistent with pneumothorax, which has been identified on chest x-ray after dialysis catheter placement. ABDOMEN: Soft. Bowel sounds are absent. There is no distention and no masses are detected. EXTREMITIES: Show 1+ edema of the thighs bilaterally. He has a Pena catheter in place and there is no urine in the tubing or the bag. He has a right IJ temporary dialysis catheter in place. SKIN: Without rash. LABORATORY DATA: White count 9.9, hemoglobin 8.1, platelet count 170,000. Sodium 134, potassium 5.4, chloride 98, CO2 26, BUN 56, creatinine 2.9, calcium 7.3, magnesium was 2.1 earlier today. Alkaline phosphatase was 39, ALT is 22, albumin is 2.6. INR last night was 1.3. ASSESSMENT: 1. Acute anuric renal failure secondary to shock from apparent sepsis and respiratory failure and presumptive aspiration pneumonia. The patient is being started on continuous renal replacement therapy. I appreciate his having had an emergent dialysis catheter placed by a surgeon. He is having a chest tube placed to address the incidental pneumothorax complication. We will plan on keeping his volume status even during the night and will follow his chemistries and adjust his dialysis prescription accordingly. It would seem his overall prognosis is poor given his advanced age, multiple comorbidities and severity of his acute illness. 2. Sepsis with shock secondary to aspiration pneumonia, rule out other source of infection. 3. History of chronic obstructive pulmonary disease. 4. History of lung mass, that is, at this point, undiagnosed. 5. History of hypertension. 6. Anemia. [address] [address] CONSULTATION Name: ABBEY GHOSH Room: [address] IN M.R.#: [id number] Admission: 05/30/18 Attend Phys: Domi Choudhary MD Discharge: 06/09/18 Date of : 39 Report #: [id number] 7. Pneumothorax secondary to a dialysis catheter insertion, getting a chest tube placement now. Thank you very much for asking me to see the patient in consultation. We will follow with you. <ELECTRONICALLY SIGNED> By: Misael Carpenter MD 06/30/18908 [id number] [id number] Carpenter MD /nt
== END 2018-06-09 17:34 | disposition short-term general hospital (02) | DRG 870 ==
LOC: M.ERS 21:40 → M.TBA-ER 22:43 → M.ICU 22:43
PROVIDERS: Family Medicine; Internal Medicine; Internal Medicine Critical Care Medicine; Internal Medicine Nephrology; Internal Medicine Pulmonary Disease; ADMIT Internal Medicine
PROC: 0BH17EZ Insertion of Endotracheal Airway into Trachea, Via Natural or Artificial Opening (ICD-10-PCS; principal; 2018-05-31)
PROC: 4A133J1 Monitoring of Arterial Pulse, Peripheral, Percutaneous Approach (ICD-10-PCS; principal; 2018-05-31)
PROC: 5A1955Z Respiratory Ventilation, Greater than 96 Consecutive Hours (ICD-10-PCS; principal; 2018-05-31)
PROC: 03HY32Z Insertion of Monitoring Device into Upper Artery, Percutaneous Approach (ICD-10-PCS; principal; 2018-05-31)
PROC: 4A133B1 Monitoring of Arterial Pressure, Peripheral, Percutaneous Approach (ICD-10-PCS; principal; 2018-05-31)
PROC: 05PYX3Z Removal of Infusion Device from Upper Vein, External Approach (ICD-10-PCS; 2018-06-03)
PROC: 05HM33Z Insertion of Infusion Device into Right Internal Jugular Vein, Percutaneous Approach (ICD-10-PCS; 2018-06-03)
PROC: B544ZZA Ultrasonography of Left Jugular Veins, Guidance (ICD-10-PCS; 2018-06-04)
PROC: 05HN33Z Insertion of Infusion Device into Left Internal Jugular Vein, Percutaneous Approach (ICD-10-PCS; 2018-06-04)
PROC: B5141ZA Fluoroscopy of Left Jugular Veins using Low Osmolar Contrast, Guidance (ICD-10-PCS; 2018-06-04)
PROC: 0W9930Z Drainage of Right Pleural Cavity with Drainage Device, Percutaneous Approach (ICD-10-PCS; 2018-06-07)
PROC: 30233N1 Transfusion of Nonautologous Red Blood Cells into Peripheral Vein, Percutaneous Approach (ICD-10-PCS; 2018-06-08)
PROC: 5A1223Z Performance of Cardiac Pacing, Continuous (ICD-10-PCS; 2018-06-08)
DX: A41.9 Sepsis, unspecified organism (principal); J69.0 Pneumonitis due to inhalation of food and vomit; J96.21 Acute and chronic respiratory failure with hypoxia; J96.22 Acute and chronic respiratory failure with hypercapnia; R65.21 Severe sepsis with septic shock; G93.40 Encephalopathy, unspecified; N17.0 Acute kidney failure with tubular necrosis; I44.2 Atrioventricular block, complete; N18.4 Chronic kidney disease, stage 4 (severe); E87.4 Mixed disorder of acid-base balance; E87.1 Hypo-osmolality and hyponatremia; I96 Gangrene, not elsewhere classified; J93.9 Pneumothorax, unspecified; I12.9 Hypertensive chronic kidney disease with stage 1 through stage 4 chronic kidney disease, or unspecified chronic kidney disease; F17.210 Nicotine dependence, cigarettes, uncomplicated; R91.8 Other nonspecific abnormal finding of lung field; E16.2 Hypoglycemia, unspecified; R34 Anuria and oliguria; E87.6 Hypokalemia; J98.2 Interstitial emphysema; D64.9 Anemia, unspecified; D69.6 Thrombocytopenia, unspecified; Z85.21 Personal history of malignant neoplasm of larynx; Z85.828 Personal history of other malignant neoplasm of skin; Z87.81 Personal history of (healed) traumatic fracture; Z92.3 Personal history of irradiation; Z90.49 Acquired absence of other specified parts of digestive tract; Z79.899 Other long term (current) drug therapy; R62.7 Adult failure to thrive